=== PATIENT | female | born 1940 | race Caucasian/White ===

== ENCOUNTER 2016-12-16 15:10 | Inpatient (IN) ==
[~2016-12-16 15:10] MED LIST: LIDOCAINE 2% 5 ML VIAL ONE; PROPOFOL 200 MG/20 ML VIAL IV ONE
--- NOTE | 2016-12-16 15:27 | Family Practice History&Phys ---
Assessment and Plan (1) Rectal bleeding Status: Acute Assessment and plan: Admit to the monitor bed, Rectal bleeding/hemorrhoids/anemia, keep nothing by mouth, start IV fluids, will get stool occult blood testing, serial H&H. consult GI 2. Weakness, hypotension, continue IV fluids,will hold antihypertensives, Will get CT head noncontrast, consult neurology 3. Parkinson's disease, continue levodopa carbidopa, fall precautions, Current Visit: Yes (2) Weakness Status: Acute Current Visit: Yes (3) Parkinsons disease Status: Chronic Current Visit: Yes (4) Hemorrhoids Status: Chronic Current Visit: Yes (5) Hypotension Status: Acute Current Visit: Yes (6) Anemia Status: Chronic Current Visit: Yes History of Present Illness Chief complaint: rectal bleeding, weakness since 3 days History of present illness: Ms. Diop is a 76 year old female pt came for initial visit as walkin,accompanied by her friend, Ms.Jane Calvin , [facility]CP: [facility] , neurologist at [facility], last seen 1 yr ago.? Dr. Mao, GI having diarrhea , bleeding from rectum , since 3 days,, pt has external hemorrhoids, last BM , at 10AM , had blood , pt feeling weak,tired, h/o parkinson's, on stalevo, slurred speech since 3 day , but getting better, intermittently has difficulty swallowing on and off specially with pills, no head injury, has dizziness on and off since 3 days , specially on getting up , fall 3 days ago , once was unable to stand, no new vision issues mentions she lost 20 lbs since 03/2016, used to weigh 135 lbs in 10/2015, has h/ o anemia, appetite fair, last thing eaten today in AM, last c-scope /EGD 2014, C scope with ulcerative colitis with severe rectal involvement/proctitis, descending colon polyps, EGD showed hiatal hernia . 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 Home Medications Medication Instructions Recorded Confirmed Type ALPRAZolam [Xanax Xr] 0.5 tablet PO QID 02/12/15 12/16/16 History Aspirin [Ecotrin] 81 mg PO BID 02/12/15 12/16/16 History Carbid/Levo/Entac 37.5-150-200 150 mg PO TID 02/12/15 12/16/16 History [Stalevo 150] Fluticasone 50 Mcg Nasal [place] 2 spray BOTH NARES DAILY 02/12/15 12/16/16 History [Flonase Nasal [place]] Gabapentin 100 mg PO TID PRN 02/12/15 12/16/16 History HYDROcodone/ACETAMIN 10-325 [[place] 1 tablet PO Q4HR PRN 02/12/15 12/16/16 History 10-325] Lidocaine 5% Patch [Lidoderm 5% 1 patch TRANSDERM DAILY 02/12/15 12/16/16 History Patch] Ondansetron Odt Tab [Zofran Odt] 4 mg PO Q8H PRN 02/12/15 12/16/16 History Cholecalciferol (Vitamin D3) 4,000 unit PO DAILY 12/16/16 12/16/16 History [Vitamin D3] Esomeprazole Magnesium [Nexium] 40 mg PO DAILY 12/16/16 12/16/16 History Allergies Allergy/AdvReac Type Severity Reaction Status Date / Time celecoxib [From Celebrex] Allergy Verified 02/12/15 14:24 cephalexin [From Keflex] Allergy Verified 02/12/15 14:24 iodine Allergy Redness of Verified 02/11/15 14:48 Skin levofloxacin [From Levaquin] Allergy Swelling Verified 02/11/15 14:48 of Lip/Tongue/Throat mesalamine [From Asacol] Allergy Verified 02/13/15 11:23 metronidazole [From Flagyl] Allergy Verified 02/12/15 14:24 Penicillins Allergy Swelling Verified 02/11/15 14:48 of Lip/Tongue/Throat sulfamethoxazole Allergy Swelling Verified 02/11/15 14:48 [From Bactrim] of Lip/Tongue/Throat trimethoprim [From Bactrim] Allergy Swelling Verified 02/11/15 14:48 of Lip/Tongue/Throat - Constitutional Constitutional: Present: as per HPI - EENT Eyes: Present: as per HPI Nose, mouth and throat: Present: as per HPI - Cardiovascular Cardiovascular: Present: as per HPI - Respiratory Respiratory: Present: as per HPI - Gastrointestinal Gastrointestinal: Present: as per HPI - Genitourinary Genitourinary: Present: as per HPI - Musculoskeletal Musculoskeletal: Present: as per HPI - Neurological Neurological: Present: as per HPI - Psychiatric Psychiatric: Present: as per HPI - Endocrine Endocrine: Present: as per HPI - Hematologic/Lymphatic Hematologic/Lymphatic: Present: as per HPI Medical,Surgical,& Family Hx - Medical History Cardio: History of: Cardiac Dysrhythmia, Hypertension (Resolved), Valvular Heart Disease, Cardiovascular Problems No history of: Aneurysm, Cerebrovascular Disease, Congenital Heart Disease, CHF, CAD, [place], Pacemaker, PVD Psychological: History of: Anxiety Disorders No history of: ADHD, Behavior Problems, Bipolar Disorder, Depression, Previous Suicide Attempt, Psychiatric/Substance Abuse Tx, Schizophrenia, Violent Behavior, Psychiatric Problems Neurology: History of: Parkinson's Disease, TIA (12/2013), Vertigo (IN PAST) No history of: Brain Aneurysm, Cerebral Hemorrhage, Cerebrovascular Accident , Cerebral Palsy, Dementia, Migraine, Multiple Sclerosis, Peripheral Neuropathy , Seizures, Neurologocal Cancer HEENT: History of: Eye Problem (GLASSES, CATARACTS) No history of: Ear Problem, Dental Problems, Glaucoma, Oral Cancer, HEENT Problems Endocrine: No history of: Adrenal Disease, Diabetes Mellitus (IDDM), Diabetes Mellitus ( NIDDM), Dyslipidemia, Thyroid Disorder, Endocrine Cancer, Endocrine Problems Rheumatology: No history of;: Fibromyalgia, Gout, Myasthenia Gravis, Psoriasis, Rheumatoid Arthritis, Sjogrens, Systemic Lupus Erythematosus, Rheumatological Problems Respiratory: History of: Obstructive Sleep Apnea (Dr. Zapata told pt she needed sleep study but has not had) No history of: Asthma, Bronchitis, COPD, Intubation, Pulmonary Embolism, Pulmonary Hypertension, Pneumonia, Lung Cancer, Respiratory Problems Renal: No history of: Renal (Kidney) Cancer, Dialysis, Renal Failure, Renal Problems Genitourinary: History of: Bladder Problem, Recurring Urinary Tract Infections No history of: Kidney Stones, Genitourinary Cancer, Problems Gastrointestinal: History of: Diverticulitis/ Diverticulosis, GERD, Gastrointestinal Bleed, Hemorrhoids, Hematochezia, Ulcerative Colitis No history of: Bowel Obstruction, Clostridium Difficile, Crohn's Disease, Esophageal Varices, Hepatitis, Liver Problems, Pancreatitis, Polyps, Gastrointestinal Cancer Musculoskeletal: History of: Amputation (2 toes on left foot removed, osteomylitis.), Musculoskeletal Problems (chronic pain) No history of: Back/Neck Problems, Degenerative Disk Disease, Herniated Disk , Osteoporosis, Musculoskeletal Cancer Hematology: History of: Anemia No history of: Blood Transfusion Reaction, Bleeding Problems, Clotting Problems, Sickle Cell Disease, Hematologic Cancer, Blood Disorders Reproductive: No history of: Abnormal Pap Smear, Breast Cancer, Endometriosis, Ectopic , Ovarian Cysts, Complication, Sexually Transmitted Disorders , Reproductive Cancer, Reproductive Problems Other: History of: Anaphylaxis (PCN,SULFA Drugs, Levaquin) No history of: Anesthesia Reactions, Cancer, Eczema, HIV, Malignant Hyperthermia, MRSA, Vancomycin-Resistant Enterococci, Skin Problems, Miscellaneous Medical Problems - Surgical History Cardiac Surgeries: Patient Denies: Femoral-Popliteal Bypass Graft, Cardiac Catheterization, Cardiac Surgery, Carotid Endarterectomy, Internal Defibrillator, Vascular Access Devices Thoracic Surgeries: Patient denies;: Kidney (Renal Surgery), Lithotripsy, Nephrectomy, Organ Transplant, Lobectomy Neurologic Surgeries: Patient denies: Brain Aneurysm, Cerebral Hemorrhage, Neurologic Surgery HEENT Surgeries: Patient denies: Carotid Endarterectomy, Eye Surgery, Thyroid Surgery, Tonsilectomy & Adenoidectomy Abdominal Surgeries: Surgical HX of: Colonoscopy, EGD Patient denies: Abdominal Surgery, Appendectomy, Cholecystectomy, Gastric Bypass Surgery, Hernia Repair, Splenectomy Reproductive Surgeries: Patient denies;: Breast Surgery, Section, Cystoscopy, Dilation and Curettage, Genitourinary Surgery, Gynecologic Surgery, Hysterectomy, Tubal Ligation Orthopedic Surgeries: Surgical HX of;: Orthopedic Surgery (TOES AMPUTATED) Patient denies;: Implanted Devices, Spinal Surgery, Total Hip Replacement, Total Knee Replacement - Family History Family History: Reports;: Family Cancer (MOther, (breast)), Family Diabetes ( Brother, Daughter), Family Heart Disease (Father,Mother, Brothers), Family Hypertension (Father), Family Stroke (Father, Mother, Daughter) Denies;: Family Anesthesia Reaction, Family Psychiatric Problems - Social History Smoking Status: Former smoker Exam - Constitutional Vitals: In clinic Vitals: Temp 97.4, HR 74, RR 20, BP 92/60, Ht 61, Wt 118.2, BMI 22.33, Oxygen sat % 99 Exam: General Examination: Examined in the clinic GENERAL APPEARANCE: alert and oriented, pleasant, in no acute distress, unsteady gait, ambulating with a walker, early female patient . HEENT: pupils equal, round, reactive to light and accommodation, cannot close her eyes completely,, atraumatic, normocephalic . EYES: extraocular movement intact (EOMI), conjunctiva clear, normal . NECK/THYROID: neck supple, full range of motion, no cervical lymphadenopathy, no thyromegaly . HEART: regular rate and rhythm, no murmurs, rubs, gallops . LUNGS: clear to auscultation bilaterally, no wheezes, rales, rhonchi . ABDOMEN: soft, nontender, nondistended, no organomegaly , bowel sounds present . RECTAL: external hemorrhoids present, patient did not further allow to complete rectal exam , stool guaiac positive. EXTREMITIES: no edema . BACK: Kyphosis Of Thoracic spine region, mildly tender thoracolumbar spine. . NEUROLOGIC: alert and oriented x2, cannot close her eyes completely, slurred speech ,gait unsteady, strength 5 /5 bilateral upper extremities, 3/5 right lower extremity, 4/5 left lower extremity, . Results - Labs CBC & BMP: 12/16/16 16:41 12/16/16 16:41 Quality Measures - VTE Contraindication to Pharmacological VTE Prophylaxis: High Risk of Bleeding
[2016-12-16] MEDS ORDERED: SODIUM CHLORIDE 0.9% 1,000 ML IV SCH (16:00)
--- NOTE | 2016-12-16 16:25 | EKG Report ---
Stationary ECG Study [facility] Test Date: 12/16/2016 4:23:35 PM Pat Name: MARTHA BARNEY Department: Room: 436 Gender: F [employer]: : 1940 Requested by: Anatoly Burrell Order Number: [id number] Reading MD: WOOD ALEXANDER Intervals [place] Rate: 62 P: 48 UT: 119 QRS: 34 QRSD: 90 T: 79 QT: 417 QTc: 423 Interpretive Statements SINUS RHYTHM WITH SHORT UT INTERVAL SEPTAL MYOCARDIAL INFARCTION, PROBABLY OLD Electronically Signed On 12-16-16 20:33:40 CDT by WOOD ALEXANDER [email or web address]
[2016-12-16 17:10] LABS: Basophils % 0.3 % (0.0-0.8); Eosinophils # 0.1 10*3/uL (0.0-0.87); Hematocrit 25.1 VOL% (35.7-47.0); Hemoglobin 8.7 GM/DL (12.0-16.0); Immature Granulocytes % 0.6 %; Immature Granulocytes Absolute 0.04 #; Lymphocytes # 0.6 10*3/uL (1.4-4.0); Lymphocytes % 9.6 % (21.3-54.2); Mean Corpuscular HGB Conc 34.7 GM/DL (32-36); Mean Corpuscular Hemoglobin 31 PG (27-34); Mean Platelet Volume 10.6 FL (9.6-12.0); Monocytes # 0.5 10*3/uL (0.11-0.8); Monocytes % 7.1 % (1.7-12.7); Neutrophils # 5.1 10*3/uL (1.4-7.4); Neutrophils % 80.4 % (38.7-73.9); Platelet Count 211 T/CUMM (130-400); Red Blood Count 2.82 MC/CUMM (3.8-5.5); Red Cell Distribution Width 12.6 % (9.3-17.3); White Blood Count 6.4 T/CUMM (4-12)
[2016-12-16 17:42] LABS: Alanine Aminotransferase < 6 U/L (13-56); Albumin 2.5 G/DL (3.4-5.0); Alkaline Phosphatase 95 U/L (45-117); Aspartate Amino Transferase 14 U/L (0-37); Blood Urea Nitrogen 36 MG/DL (7-18); Calcium 8.7 MG/DL (8.5-10.1); Glucose 105 MG/DL (74-106); Osmolality,Calculated 275.2 MOS/KG (273-304); Potassium 3.2 MMOL/L (3.5-5.1); Sodium 134 MMOL/L (136-145); Total Protein 5.9 G/DL (6.4-8.3)
--- NOTE | 2016-12-16 18:25 | CT Report ---
CT head/brain wo con INDICATION: Weakness, slurred speech The total DLP is 942 mGy*cm. COMPARISON: Noncontrast CT head dated 11/13/2015 Technique: Serial axial tomographic images of the brain were obtained without the use of intravenous contrast. Dose reduction: This CT exam was performed using one or more of the following dose reduction techniques: Automated exposure control, automated adjustment of the mA and/or KV according to patient size, or use of iterative reconstruction technique. Findings: Moderate generalized atrophy is noted with mild prominence of the sulci and cortical volume loss. Periventricular white matter hypodensity changes are noted bilaterally which do not demonstrate mass effect and are nonspecific but favored to represent sequela of chronic microvascular ischemia. There is no evidence of vascular territory infarct or acute intracranial hemorrhage. The bryan-white matter differentiation is generally maintained. There is no hydrocephalus. The basilar cisterns are patent. The visualized paranasal sinuses, mastoid air cells and middle ear cavities are predominantly clear. The included orbits and their contents appear within normal limits. The visualized osseous structures and overlying soft tissues of the skull and face demonstrate no acute abnormality. IMPRESSION: No acute intracranial hemorrhage or infarction. Similar moderate generalized atrophy and findings of chronic microvascular ischemia. PROCEDURE INTERPRETED AT [facility] DEPARTMENT OF RADIOLOGY Final Report Signed by: Figueroa Rudolph
--- NOTE | 2016-12-16 18:26 | XRay Report ---
Exam: XR chest 2V Indication: Shortness of breath Comparison study: Prior chest radiograph dated 02-11-15 Findings: The heart, mediastinum and bony structures are stable from prior. Diffuse mild interstitial prominence with hyperexpansion of the lungs compatible COPD changes appear similar to prior. There is no focal consolidation, pneumothorax or pleural effusion identified. Impression: No acute cardiopulmonary process. No significant change with chronic interstitial changes noted. PROCEDURE INTERPRETED AT [facility] DEPARTMENT OF RADIOLOGY Final Report Signed by: Figueroa Rudolph
[2016-12-16] MEDS ORDERED: ONDANSETRON ODT 4 MG TABLET PO PRN (23:03)
[2016-12-16] MEDS: ACETAMINOPHEN 325 MG TABLET PO PRN (23:31)
[2016-12-16] MEDS: ALPRAZolam 0.25 MG TABLET PO PRN (23:31)
[2016-12-16] MEDS: SODIUM CHLOR 0.9% KCL 20 MEQ 20 MEQ/1,000 ML BAG IV SCH (23:32)
[2016-12-16] MEDS: DOCUSATE SODIUM 100 MG CAPSULE PO SCH (23:32)
[2016-12-16 23:46] LABS: Hematocrit 25.6 VOL% (35.7-47.0); Hemoglobin 8.9 GM/DL (12.0-16.0)
[2016-12-17 05:57] LABS: Basophils % 0.2 % (0.0-0.8); Eosinophils # 0.1 10*3/uL (0.0-0.87); Eosinophils % 1.8 % (0.00-10.9); Hematocrit 21.1 VOL% (35.7-47.0); Immature Granulocytes % 0.4 %; Immature Granulocytes Absolute 0.02 #; Lymphocytes # 0.6 10*3/uL (1.4-4.0); Lymphocytes % 10.7 % (21.3-54.2); Mean Corpuscular HGB Conc 35.1 GM/DL (32-36); Mean Corpuscular Hemoglobin 31 PG (27-34); Mean Corpuscular Volume 87.6 FL (87-102); Mean Platelet Volume 10.7 FL (9.6-12.0); Monocytes # 0.4 10*3/uL (0.11-0.8); Monocytes % 6.6 % (1.7-12.7); Neutrophils # 4.4 10*3/uL (1.4-7.4); Neutrophils % 80.3 % (38.7-73.9); Platelet Count 201 T/CUMM (130-400); Red Blood Count 2.41 MC/CUMM (3.8-5.5); Red Cell Distribution Width 12.8 % (9.3-17.3); White Blood Count 5.4 T/CUMM (4-12)
[2016-12-17 05:59] LABS: Hemoglobin 7.4 GM/DL (12.0-16.0)
[2016-12-17 07:34] LABS: Calcium 7.6 MG/DL (8.5-10.1); Osmolality,Calculated 278.8 MOS/KG (273-304); Potassium 3.3 MMOL/L (3.5-5.1)
[2016-12-17] MEDS ORDERED: [UNRECOGNIZED DRUG - MIXTURE] PO SCH (09:00)
[2016-12-17] MEDS ORDERED: NON-FORMULARY MEDICATION (Esomeprazole Magnesium 40 MG) PO SCH (09:00)
[2016-12-17] MEDS ORDERED: ALPRAZolam 0.5 MG TABLET PO SCH (09:00)
[2016-12-17] MEDS ORDERED: ASPIRIN EC 81 MG TABLET PO SCH (09:00)
--- NOTE | 2016-12-17 09:17 | Family Practice Progress Note ---
Family Practice - PN: Subj Interval history: PCP: , [facility], GI, Neurologist, pt admitted for rectal bleeding, weakness, slurry speech improved .Had hypotension at admission, pt has h/o Anemia, ext hemorrhoids, Ulcerative proctitis, parkinson's disease, General anxiety disorder Pt seen and examined at 4E, lying in bed, speech improved today, no BM since admission, no nausea /vomiting/chest pain or SOB, no abdominal pain , no headaches or dizziness, Exam (Progress Note) - Constitutional Vitals: Period Temp Pulse Resp BP Sys/Adrian Pulse Ox Last 24 Hr 96.5 F-99.2 F 65-82 18-22 93-130/55-61 95-98 Exam: General Examination: GENERAL APPEARANCE: alert and oriented, pleasant, in no acute distress, early female patient lying in bed. HEENT: pupils equal, round, reactive to light and accommodation, cannot close her eyes completely,, atraumatic, normocephalic . EYES: extraocular movement intact (EOMI), conjunctiva clear, normal . NECK/THYROID: neck supple, full range of motion, no cervical lymphadenopathy, no thyromegaly . HEART: regular rate and rhythm, no murmurs, rubs, gallops . LUNGS: clear to auscultation bilaterally, no wheezes, rales, rhonchi . ABDOMEN: soft, nontender, nondistended, no organomegaly , bowel sounds present . EXTREMITIES: no edema , tender at rt hip,. NEUROLOGIC: alert and oriented x2, cannot close her eyes completely, slurred speech improved compared with yesterday,, strength 5 /5 bilateral upper extremities, 3/5 right lower extremity, 4/5 left lower extremity, . Results - Labs CBC & BMP: 12/17/16 09:47 12/17/16 05:00 Lab Results: I have reviewed the past 24 hour labs - Diagnostic Findings Procedure: Chest x-ray: report reviewed by me, image reviewed by me, CT: image reviewed by me, report reviewed by me Assessment and Plan (1) Rectal bleeding Status: Acute Assessment and plan: Rectal bleeding/hemorrhoids/anemia, on IV fluids, serial H&H.follow GI recommendation, 2. Weakness, hypotension, continue IV fluids with K,will hold antihypertensives, 3. Parkinson's disease, continue levodopa carbidopa, fall precautions, continue neurology recommendations, 4. will consult Speech therapist , for swallow evaluation 5. will consult PT/OT , 6.Xray of hip, pelvis today. 7. replace K 8. General anxiety , stable, decreased xanax dosage , prn Current Visit: Yes (2) Weakness Status: Acute Current Visit: Yes (3) Parkinsons disease Status: Chronic Current Visit: Yes (4) Hemorrhoids Status: Chronic Current Visit: Yes (5) Hypotension Status: Acute Current Visit: Yes (6) Anemia Status: Chronic Current Visit: Yes (7) Generalized anxiety disorder Status: Chronic Current Visit: Yes Quality Measures - VTE Contraindication to Pharmacological VTE Prophylaxis: High Risk of Bleeding
--- NOTE | 2016-12-17 09:32 | Neurology Consult Note ---
History of Present Illness History of present illness: 76 years old right-handed white lady with past medical history significant for Parkinson's disease sees Dr. Jett (neurology) admitted the hospital with diarrhea, bleeding from rectum for the past 3 days. Patient has a history of external hemorrhoids. Her H&H is down to 7 and 27 she has a history of Parkinson's and states on the Stalevo. Patient reported that she has been having difficulty in tolerating this medicine. She has not seen her neurologist and lost over 8 months. She has significant weight loss and loss of appetite as well. She has been falling frequently and fell yesterday as well and complaining of significant lower back pain and left hip pain with the bruising. She also has history of ulcerative colitis with severe ductal involvement and proctitis. CT of the head reveals no acute abnormalities. Home Medications Medication Instructions Recorded Confirmed Type ALPRAZolam [Xanax Xr] 0.5 tablet PO QID 02/12/15 12/16/16 History Aspirin [Ecotrin] 81 mg PO BID 02/12/15 12/16/16 History Carbid/Levo/Entac 37.5-150-200 150 mg PO TID 02/12/15 12/16/16 History [Stalevo 150] Fluticasone 50 Mcg Nasal [place] 2 spray BOTH NARES DAILY 02/12/15 12/16/16 History [Flonase Nasal [place]] Gabapentin 100 mg PO TID PRN 02/12/15 12/16/16 History HYDROcodone/ACETAMIN 10-325 [[place] 1 tablet PO Q4HR PRN 02/12/15 12/16/16 History 10-325] Lidocaine 5% Patch [Lidoderm 5% 1 patch TRANSDERM DAILY 02/12/15 12/16/16 History Patch] Ondansetron Odt Tab [Zofran Odt] 4 mg PO Q8H PRN 02/12/15 12/16/16 History Cholecalciferol (Vitamin D3) 4,000 unit PO DAILY 12/16/16 12/16/16 History [Vitamin D3] Esomeprazole Magnesium [Nexium] 40 mg PO DAILY 12/16/16 12/16/16 History Allergies Allergy/AdvReac Type Severity Reaction Status Date / Time celecoxib [From Celebrex] Allergy Verified 02/12/15 14:24 cephalexin [From Keflex] Allergy Verified 02/12/15 14:24 iodine Allergy Redness of Verified 02/11/15 14:48 Skin levofloxacin [From Levaquin] Allergy Swelling Verified 02/11/15 14:48 of Lip/Tongue/Throat mesalamine [From Asacol] Allergy Verified 02/13/15 11:23 metronidazole [From Flagyl] Allergy Verified 02/12/15 14:24 Penicillins Allergy Swelling Verified 02/11/15 14:48 of Lip/Tongue/Throat sulfamethoxazole Allergy Swelling Verified 02/11/15 14:48 [From Bactrim] of Lip/Tongue/Throat trimethoprim [From Bactrim] Allergy Swelling Verified 02/11/15 14:48 of Lip/Tongue/Throat 12 point system: reviewed and no additional remarkable complaints except as stated Medical,Surgical,& Family Hx - Medical History Cardio: History of: Cardiac Dysrhythmia, Hypertension (Resolved), Valvular Heart Disease, Cardiovascular Problems No history of: Aneurysm, Cerebrovascular Disease, Congenital Heart Disease, CHF, CAD, [place], Pacemaker, PVD Psychological: History of: Anxiety Disorders No history of: ADHD, Behavior Problems, Bipolar Disorder, Depression, Previous Suicide Attempt, Psychiatric/Substance Abuse Tx, Schizophrenia, Violent Behavior, Psychiatric Problems Neurology: History of: Parkinson's Disease, TIA (12/2013), Vertigo (IN PAST) No history of: Brain Aneurysm, Cerebral Hemorrhage, Cerebrovascular Accident , Cerebral Palsy, Dementia, Migraine, Multiple Sclerosis, Peripheral Neuropathy , Seizures, Neurologocal Cancer HEENT: History of: Eye Problem (GLASSES, CATARACTS) No history of: Ear Problem, Dental Problems, Glaucoma, Oral Cancer, HEENT Problems Endocrine: No history of: Adrenal Disease, Diabetes Mellitus (IDDM), Diabetes Mellitus ( NIDDM), Dyslipidemia, Thyroid Disorder, Endocrine Cancer, Endocrine Problems Rheumatology: No history of;: Fibromyalgia, Gout, Myasthenia Gravis, Psoriasis, Rheumatoid Arthritis, Sjogrens, Systemic Lupus Erythematosus, Rheumatological Problems Respiratory: History of: Obstructive Sleep Apnea (Dr. Zapata told pt she needed sleep study but has not had) No history of: Asthma, Bronchitis, COPD, Intubation, Pulmonary Embolism, Pulmonary Hypertension, Pneumonia, Lung Cancer, Respiratory Problems Renal: No history of: Renal (Kidney) Cancer, Dialysis, Renal Failure, Renal Problems Genitourinary: History of: Bladder Problem, Recurring Urinary Tract Infections No history of: Kidney Stones, Genitourinary Cancer, Problems Gastrointestinal: History of: Diverticulitis/ Diverticulosis, GERD, Gastrointestinal Bleed, Hemorrhoids, Hematochezia, Ulcerative Colitis No history of: Bowel Obstruction, Clostridium Difficile, Crohn's Disease, Esophageal Varices, Hepatitis, Liver Problems, Pancreatitis, Polyps, Gastrointestinal Cancer Musculoskeletal: History of: Amputation (2 toes on left foot removed, osteomylitis.), Musculoskeletal Problems (chronic pain) No history of: Back/Neck Problems, Degenerative Disk Disease, Herniated Disk , Osteoporosis, Musculoskeletal Cancer Hematology: History of: Anemia No history of: Blood Transfusion Reaction, Bleeding Problems, Clotting Problems, Sickle Cell Disease, Hematologic Cancer, Blood Disorders Reproductive: No history of: Abnormal Pap Smear, Breast Cancer, Endometriosis, Ectopic , Ovarian Cysts, Complication, Sexually Transmitted Disorders , Reproductive Cancer, Reproductive Problems Other: History of: Anaphylaxis (PCN,SULFA Drugs, Levaquin) No history of: Anesthesia Reactions, Cancer, Eczema, HIV, Malignant Hyperthermia, MRSA, Vancomycin-Resistant Enterococci, Skin Problems, Miscellaneous Medical Problems - Surgical History Cardiac Surgeries: Patient Denies: Femoral-Popliteal Bypass Graft, Cardiac Catheterization, Cardiac Surgery, Carotid Endarterectomy, Internal Defibrillator, Vascular Access Devices Thoracic Surgeries: Patient denies;: Kidney (Renal Surgery), Lithotripsy, Nephrectomy, Organ Transplant, Lobectomy Neurologic Surgeries: Patient denies: Brain Aneurysm, Cerebral Hemorrhage, Neurologic Surgery HEENT Surgeries: Patient denies: Carotid Endarterectomy, Eye Surgery, Thyroid Surgery, Tonsilectomy & Adenoidectomy Abdominal Surgeries: Surgical HX of: Colonoscopy, EGD Patient denies: Abdominal Surgery, Appendectomy, Cholecystectomy, Gastric Bypass Surgery, Hernia Repair, Splenectomy Reproductive Surgeries: Patient denies;: Breast Surgery, Section, Cystoscopy, Dilation and Curettage, Genitourinary Surgery, Gynecologic Surgery, Hysterectomy, Tubal Ligation Orthopedic Surgeries: Surgical HX of;: Orthopedic Surgery (TOES AMPUTATED) Patient denies;: Implanted Devices, Spinal Surgery, Total Hip Replacement, Total Knee Replacement - Family History Family History: Reports;: Family Cancer (MOther, (breast)), Family Diabetes ( Brother, Daughter), Family Heart Disease (Father,Mother, Brothers), Family Hypertension (Father), Family Stroke (Father, Mother, Daughter) Denies;: Family Anesthesia Reaction, Family Psychiatric Problems - Social History Smoking Status: Former smoker Frequency of Alcohol Use: None Type of Drug Use: None Exam - Constitutional Vitals: Period Temp Pulse Resp BP Sys/Adrian Pulse Ox Last 24 Hr 96.5 F-99.2 F 65-82 18-22 93-130/55-61 95-98 Exam: GENERAL: Patient is in no acute distress. NECK: Neck is supple. There is no JVD. No carotid bruits present. No thyroid masses. CVS: First and second heart sounds are normal. There is no S3 present. Regular rate and rhythm. RESPIRATORY: Lungs are clear to auscultation without any rales or rhonchi. ABDOMEN: Soft and non-tender. Bowel sounds are present. There is no hepatosplenomegaly. EXT: There is no palpable edema. Peripheral pulses are present. Skin: No rashes Central Nervous system: General: Alert, awake and Oriented x 3 Speech: Fluent Comprehension: Intact and normal Facial expressions: Normal Cranial Nerves: CN1/Olfactory: Normal CN II/ Optic: Normal, Visual Granado unreliable CN III, and : ART & EOMI CN V: Normal & intact CN VII: face is symmetric CNVIII: Normal CN XI/X/XI/XII: Intact and Normal Motor: No cogwheel rigidity seen. Marked tenderness in the lower back and in the left hip Strength in the right 3/5 Strength in the left 3/5 Sensory: Grossly intact for all the modalities of PP, LT and temp sense Reflexes: 1+ and symmetrical Cerebellar function: Normal finger to nose testing. Toes: Equivocal Gait: Not tested at this time Results - Labs CBC & BMP: 12/17/16 05:00 12/17/16 05:00 Assessment and Plan (1) Frequent falls Status: Acute Assessment and plan: MRI LS spine and left hip Current Visit: Yes (2) Parkinsons disease Status: Chronic Assessment and plan: Changes Stalevo to 100 mg 3 times Consult TMR Thank you for the consult Current Visit: Yes
[2016-12-17] MEDS ORDERED: [UNRECOGNIZED DRUG - MIXTURE] PO SCH (09:36)
[2016-12-17] MEDS: ACETAMINOPHEN 325 MG TABLET PO PRN (09:38)
[2016-12-17] MEDS: LIDOCAINE 5% PATCH TRANSDERM SCH (09:40)
[2016-12-17] MEDS: CHOLECALCIFEROL 1,000 UNIT TABLET PO SCH (09:41)
[2016-12-17] MEDS: DOCUSATE SODIUM 100 MG CAPSULE PO SCH ×2 (09:41→21:24)
[2016-12-17] MEDS: FLUTICASONE 50 MCG NASAL SPRAY 16 GM BOTTLE BOTH NARES SCH (09:41)
[2016-12-17] MEDS: GABAPENTIN 100 MG CAPSULE PO SCH ×2 (09:41→16:35)
[2016-12-17 10:01] LABS: Hematocrit 25.3 VOL% (35.7-47.0); Hemoglobin 8.5 GM/DL (12.0-16.0)
--- NOTE | 2016-12-17 10:27 | Gastrointestinal Consult Note ---
<Zena Ann - Last Filed: 12/17/16 10:24> Assessment and Plan (1) Hematochezia Status: Acute Assessment and plan: 12/17-Three month history of rectal bleeding off and on with moderate episode of bright red blood without stool on yesterday. Prior history of UC, hemorrhoids and rectal involvement/proctitis with last colonoscopy in 2014. Last EGD in 2016 with stricture with dilation and hiatal hernia. H&H 8.5/25.3 with no further reports of overt bleeding. Stools for occult blood pending. Clear liquid diet. Plan an addendum to follow by Dr. Mao. Current Visit: No (2) Dysphagia Status: Acute Assessment and plan: 12/17-history of dysphagia with esophageal stricture and dilation most recently in 2015, with complaints of difficulty swallowing pills. Reported 20 pound weight loss over past year with decreased appetite. Plan an addendum to followed by Dr. Mao. Current Visit: Yes History of Present Illness Chief complaint: Rectal bleeding History of present illness: Ms. Diop is a 76 year old female who was admitted to the hospital on yesterday after episode of rectal bleeding. Patient has a prior history of Parkinson's disease. Patient states that she was in her usual state of health until yesterday when she had a large, loose bowel movement. Shortly following this she had the urge to defecate again however this time she had a moderate amount of bright red blood without stool that she passed rectally. Patient states that she has had some fairly loose stools the past 2 or 3 days prior to onset of the bleeding. She states prior to this, for the last 3 months, she has had a small amount of bright red bleeding with bowel movements however states that she is aware of having hemorrhoids and felt this was mostly related to this. Patient denies any associated abdominal pain, nausea or vomiting. She states that she has not passed any further blood since that time however due to weakness for the last 2 or 3 days, she presented to see her PCP and after findings of anemia, she was admitted to the hospital for further workup. Patient states that she has lost approximately 20 pounds over the last year however states that she has a decreased appetite. She lives alone and states that she does not always fix food for herself as she should. She also has reported history of dysphagia with prior history of dilation in the past with most recent EGD in 2016 with esophageal stricture with dilation as well as hiatal hernia. Her last colonoscopy was noted in 2014 with findings of ulcerative colitis confirmed with biopsy with also findings of proctitis and polyp removal (tubular adenoma). Patient denies any NSAID use. She does take Nexium daily as well as a baby aspirin. Patient states she also had a fall at home prior to coming in at this time is having x-rays to assess for any injury due to this. Home Medications Medication Instructions Recorded Confirmed Type ALPRAZolam [Xanax Xr] 0.5 tablet PO QID 02/12/15 12/16/16 History Aspirin [Ecotrin] 81 mg PO BID 02/12/15 12/16/16 History Carbid/Levo/Entac 37.5-150-200 150 mg PO TID 02/12/15 12/16/16 History [Stalevo 150] Fluticasone 50 Mcg Nasal [place] 2 spray BOTH NARES DAILY 02/12/15 12/16/16 History [Flonase Nasal [place]] Gabapentin 100 mg PO TID PRN 02/12/15 12/16/16 History HYDROcodone/ACETAMIN 10-325 [[place] 1 tablet PO Q4HR PRN 02/12/15 12/16/16 History 10-325] Lidocaine 5% Patch [Lidoderm 5% 1 patch TRANSDERM DAILY 02/12/15 12/16/16 History Patch] Ondansetron Odt Tab [Zofran Odt] 4 mg PO Q8H PRN 02/12/15 12/16/16 History Cholecalciferol (Vitamin D3) 4,000 unit PO DAILY 12/16/16 12/16/16 History [Vitamin D3] Esomeprazole Magnesium [Nexium] 40 mg PO DAILY 12/16/16 12/16/16 History Allergies Allergy/AdvReac Type Severity Reaction Status Date / Time celecoxib [From Celebrex] Allergy Verified 02/12/15 14:24 cephalexin [From Keflex] Allergy Verified 02/12/15 14:24 iodine Allergy Redness of Verified 02/11/15 14:48 Skin levofloxacin [From Levaquin] Allergy Swelling Verified 02/11/15 14:48 of Lip/Tongue/Throat mesalamine [From Asacol] Allergy Verified 02/13/15 11:23 metronidazole [From Flagyl] Allergy Verified 02/12/15 14:24 Penicillins Allergy Swelling Verified 02/11/15 14:48 of Lip/Tongue/Throat sulfamethoxazole Allergy Swelling Verified 02/11/15 14:48 [From Bactrim] of Lip/Tongue/Throat trimethoprim [From Bactrim] Allergy Swelling Verified 02/11/15 14:48 of Lip/Tongue/Throat Medical,Surgical,& Family Hx - Medical History Cardio: History of: Cardiac Dysrhythmia, Hypertension (Resolved), Valvular Heart Disease, Cardiovascular Problems No history of: Aneurysm, Cerebrovascular Disease, Congenital Heart Disease, CHF, CAD, [place], Pacemaker, PVD Psychological: History of: Anxiety Disorders No history of: ADHD, Behavior Problems, Bipolar Disorder, Depression, Previous Suicide Attempt, Psychiatric/Substance Abuse Tx, Schizophrenia, Violent Behavior, Psychiatric Problems Neurology: History of: Parkinson's Disease, TIA (12/2013), Vertigo (IN PAST) No history of: Brain Aneurysm, Cerebral Hemorrhage, Cerebrovascular Accident , Cerebral Palsy, Dementia, Migraine, Multiple Sclerosis, Peripheral Neuropathy , Seizures, Neurologocal Cancer HEENT: History of: Eye Problem (GLASSES, CATARACTS) No history of: Ear Problem, Dental Problems, Glaucoma, Oral Cancer, HEENT Problems Endocrine: No history of: Adrenal Disease, Diabetes Mellitus (IDDM), Diabetes Mellitus ( NIDDM), Dyslipidemia, Thyroid Disorder, Endocrine Cancer, Endocrine Problems Rheumatology: No history of;: Fibromyalgia, Gout, Myasthenia Gravis, Psoriasis, Rheumatoid Arthritis, Sjogrens, Systemic Lupus Erythematosus, Rheumatological Problems Respiratory: History of: Obstructive Sleep Apnea (Dr. Zapata told pt she needed sleep study but has not had) No history of: Asthma, Bronchitis, COPD, Intubation, Pulmonary Embolism, Pulmonary Hypertension, Pneumonia, Lung Cancer, Respiratory Problems Renal: No history of: Renal (Kidney) Cancer, Dialysis, Renal Failure, Renal Problems Genitourinary: History of: Bladder Problem, Recurring Urinary Tract Infections No history of: Kidney Stones, Genitourinary Cancer, Problems Gastrointestinal: History of: Diverticulitis/ Diverticulosis, GERD, Gastrointestinal Bleed, Hemorrhoids, Hematochezia, Ulcerative Colitis No history of: Bowel Obstruction, Clostridium Difficile, Crohn's Disease, Esophageal Varices, Hepatitis, Liver Problems, Pancreatitis, Polyps, Gastrointestinal Cancer Musculoskeletal: History of: Amputation (2 toes on left foot removed, osteomylitis.), Musculoskeletal Problems (chronic pain) No history of: Back/Neck Problems, Degenerative Disk Disease, Herniated Disk , Osteoporosis, Musculoskeletal Cancer Hematology: History of: Anemia No history of: Blood Transfusion Reaction, Bleeding Problems, Clotting Problems, Sickle Cell Disease, Hematologic Cancer, Blood Disorders Reproductive: No history of: Abnormal Pap Smear, Breast Cancer, Endometriosis, Ectopic , Ovarian Cysts, Complication, Sexually Transmitted Disorders , Reproductive Cancer, Reproductive Problems Other: History of: Anaphylaxis (PCN,SULFA Drugs, Levaquin) No history of: Anesthesia Reactions, Cancer, Eczema, HIV, Malignant Hyperthermia, MRSA, Vancomycin-Resistant Enterococci, Skin Problems, Miscellaneous Medical Problems - Surgical History Cardiac Surgeries: Patient Denies: Femoral-Popliteal Bypass Graft, Cardiac Catheterization, Cardiac Surgery, Carotid Endarterectomy, Internal Defibrillator, Vascular Access Devices Thoracic Surgeries: Patient denies;: Kidney (Renal Surgery), Lithotripsy, Nephrectomy, Organ Transplant, Lobectomy Neurologic Surgeries: Patient denies: Brain Aneurysm, Cerebral Hemorrhage, Neurologic Surgery HEENT Surgeries: Patient denies: Carotid Endarterectomy, Eye Surgery, Thyroid Surgery, Tonsilectomy & Adenoidectomy Abdominal Surgeries: Surgical HX of: Colonoscopy, EGD Patient denies: Abdominal Surgery, Appendectomy, Cholecystectomy, Gastric Bypass Surgery, Hernia Repair, Splenectomy Reproductive Surgeries: Patient denies;: Breast Surgery, Section, Cystoscopy, Dilation and Curettage, Genitourinary Surgery, Gynecologic Surgery, Hysterectomy, Tubal Ligation Orthopedic Surgeries: Surgical HX of;: Orthopedic Surgery (TOES AMPUTATED) Patient denies;: Implanted Devices, Spinal Surgery, Total Hip Replacement, Total Knee Replacement - Family History Family History: Reports;: Family Cancer (MOther, (breast)), Family Diabetes ( Brother, Daughter), Family Heart Disease (Father,Mother, Brothers), Family Hypertension (Father), Family Stroke (Father, Mother, Daughter) Denies;: Family Anesthesia Reaction, Family Psychiatric Problems - Social History Smoking Status: Former smoker Frequency of Alcohol Use: None Type of Drug Use: None 12 point system: reviewed and no additional remarkable complaints except as stated - Constitutional Constitutional: Present: as per HPI - EENT Eyes: Present: as per HPI Ears: Present: as per HPI Nose, mouth and throat: Present: as per HPI - Cardiovascular Cardiovascular: Present: as per HPI - Respiratory Respiratory: Present: as per HPI - Gastrointestinal Gastrointestinal: Present: as per HPI, abdominal pain, hematochezia - Genitourinary Genitourinary: Present: as per HPI - Musculoskeletal Musculoskeletal: Present: as per HPI - Neurological Neurological: Present: as per HPI - Psychiatric Psychiatric: Present: as per HPI - Endocrine Endocrine: Present: as per HPI - Hematologic/Lymphatic Hematologic/Lymphatic: Present: as per HPI Exam - Constitutional Vitals: Period Temp Pulse Resp BP Sys/Adrian Pulse Ox Last 24 Hr 96.5 F-99.2 F 60-82 18-22 93-130/55-61 95-98 General appearance: normal weight, no acute distress - Head Head exam: Present: normal inspection, normocephalic - Eye Eye exam: Present: other (lids and conjunctiva unremarkable). Absent: scleral icterus - ENT ENT exam: Present: normal exam, normal oropharynx - Neck Neck exam: Present: normal inspection - Respiratory Respiratory exam: Present: clear to auscultation bilaterally. Absent: rales, rhonchi, wheezes - Cardiovascular Cardiovascular exam: Present: regular rate and rhythm. Absent: diastolic murmur , JVD, systolic murmur - GI/Abdominal GI/Abdominal exam: Present: normal bowel sounds, soft. Absent: ascites, distended, mass, organomegaly, tenderness - Extremities Exam Extremities exam: Present: normal inspection, full ROM - Back Exam Back exam: Present: normal inspection - Neurological Exam Neurological exam: Present: alert, oriented X3 - Psychiatric Psychiatric exam: Present: normal affect, normal mood - Skin Skin exam: Present: normal color, warm, dry Results - Labs CBC & BMP: 12/17/16 09:47 12/17/16 05:00 Lab Results: I have reviewed the past 24 hour labs Quality Measures - VTE Contraindication to Pharmacological VTE Prophylaxis: High Risk of Bleeding <Anatoly Burrell - Last Filed: 12/17/16 12:41> Assessment and Plan (1) Rectal bleeding Status: Acute Current Visit: Yes (2) Weakness Status: Acute Current Visit: Yes (3) Parkinsons disease Status: Chronic Current Visit: Yes (4) Hemorrhoids Status: Chronic Current Visit: Yes (5) Hypotension Status: Acute Current Visit: Yes (6) Anemia Status: Chronic Current Visit: Yes History of Present Illness History of present illness: Ms. Diop is a 76 year old female Exam - Constitutional Vitals: Period Temp Pulse Resp BP Sys/Adrian Pulse Ox Last 24 Hr 96.5 F-99.2 F 60-82 18-22 93-130/53-61 95-99 Results - Labs CBC & BMP: 12/17/16 09:47 12/17/16 05:00
[2016-12-17] MEDS: POTASSIUM CHLORIDE RIDER 10 MEQ in PREMIX 1 EACH IV SCH ×2 (11:30→13:47)
[2016-12-17] MEDS: PANTOPRAZOLE 40 MG VIAL IV SCH (11:30)
--- NOTE | 2016-12-17 13:42 | XRay Report ---
Three-view pelvis December 17, 2016 Indication fall with pain Comparison images not available Findings: No fracture or dislocation. Bony pelvis is intact. Bowel gas pattern is normal. Regional soft tissues are unremarkable. Impression: Normal pelvis PROCEDURE INTERPRETED AT [facility] DEPARTMENT OF RADIOLOGY Final Report Signed by: Jimmy Lucas
[2016-12-17 14:55] LABS: % Iron Saturation 11.6 % (18-50); Ferritin 192.6 ng/ml (8-252)
[2016-12-17] MEDS: SODIUM CHLOR 0.9% KCL 20 MEQ 20 MEQ/1,000 ML BAG IV SCH (16:35)
[2016-12-17] MEDS: STALEVO PO SCH ×2 (16:36→21:24)
--- NOTE | 2016-12-17 16:38 | Magnetic Resonance Report ---
Exam: MRI lumbar spine without contrast Indication: 76-year-old female, frequent falls with severe back pain Comparison: No relevant comparisons Technique: Multisequence, multiplanar imaging of the thoracic spine was performed without contrast Findings: Grade 1 anterolisthesis of L5. Superior endplate deformity of L1, chronic. Preservation of the remaining vertebral body heights. Well-defined focus of T2 within the L2 vertebral body with corresponding intermediate T1 signal, felt to represent atypical hemangioma. Preservation of the remaining marrow signal Cord signal is normal terminating at T12-L1. No intra or extradural abnormalities. Disc desiccation throughout the remainder degree of disc space narrowing T12-L1: Unremarkable L1-L2: Unremarkable L2-L3: Slight annular disc bulge and hypertrophic endplate changes. Mild facet arthrosis. No significant central or foraminal narrowing L3-L4: Slight annular disc bulge and hypertrophic endplate changes. No significant central or foraminal stenosis L4-L5: Mild facet arthrosis L5-S1: Anterolisthesis with moderate facet arthrosis. No spinal stenosis. Moderate right foraminal narrowing No soft tissue abnormalities. Impression: 1. T2 hyperintense lesion within the L2 body with corresponding intermediate signal. Findings felt to represent atypical hemangioma. Six-month follow-up is suggested. 2. Grade 1 anterolisthesis of L5 resulting in moderate right foraminal narrowing, correlate clinically for radicular symptoms PROCEDURE INTERPRETED AT [facility] DEPARTMENT OF RADIOLOGY Final Report Signed by: Jimmy Lucas
--- NOTE | 2016-12-17 16:52 | Magnetic Resonance Report ---
MRI left hip December 17, 2016 at 1528 hours Indication: Frequent falls with severe left hip pain Comparison images not available Technique: Multisequence, multiplanar imaging of the left hip was performed without contrast per routine protocol Findings: Generalized muscle atrophy. Extensor, flexor and abductor tendons are unremarkable in appearance. The iliofemoral and patellofemoral ligaments are intact. The piriformis muscles are symmetric bilaterally. Degenerative fraying of the labrum. Diffuse thinning and fraying of the articular cartilage with proliferative and subchondral sclerotic changes involving the superior acetabulum. No fracture or dislocation. Diffuse red marrow replacement is noted. Sacroiliac joints are symmetric. No abnormal bursal fluid collections. Intrapelvic structures are unremarkable Impression: 1. No evidence of traumatic injury to the left hip 2. Mild left hip osteoarthrosis PROCEDURE INTERPRETED AT [facility] DEPARTMENT OF RADIOLOGY Final Report Signed by: Jimmy Lucas
[2016-12-17 17:21] LABS: Apearance,Urine CLOUDY (Clear); Bacteria,Urine Many /HPF (Few); Bilirubin,Urine Negative (Negative); Blood, Urine Large mg/dL (Negative); Glucose,Urine (UA) Negative (Negative); Ketones,Urine Negative (Negative); Nitrite,Urine Positive (Negative); Protein,Urine 30 MG/DL; RBC,Urine 4 /HPF (0-4); Squamous Epithelial Cell,Urine Occasional /HPF (0-10); Urine Color Yellow (Yellow); Urine Specific Gravity 1.009 (1.001-1.035); Urine Urobilinogen < 2.0 EU/DL (0.2-1.0); WBC,Urine 329 /HPF (0-6)
[2016-12-17 17:54] LABS: Hematocrit 22.7 VOL% (35.7-47.0); Hemoglobin 7.7 GM/DL (12.0-16.0)
[2016-12-17 21:37] LABS: Hematocrit 25.3 VOL% (35.7-47.0); Hemoglobin 8.3 GM/DL (12.0-16.0)
[2016-12-18] MEDS: GABAPENTIN 100 MG CAPSULE PO SCH ×4 (00:53→20:18)
[2016-12-18] MEDS: ACETAMINOPHEN 325 MG TABLET PO PRN ×2 (01:33→16:59)
[2016-12-18] MEDS: ONDANSETRON 4 MG/2 ML VIAL IV PRN (01:35)
[2016-12-18 06:48] LABS: Hematocrit 22.4 VOL% (35.7-47.0); Hemoglobin 7.7 GM/DL (12.0-16.0)
[2016-12-18] MEDS ORDERED: NITROFURANTOIN MACRO/MONO 100 MG CAPSULE PO SCH (07:00)
[2016-12-18] MEDS ORDERED: SODIUM CHLORIDE 0.9% 250 ML IV PRN (08:17)
--- NOTE | 2016-12-18 09:09 | Family Practice Progress Note ---
Family Practice - PN: Subj Interval history: PCP: ,outside [facility] on case: GI, Neurologist, pt admitted for rectal bleeding, H/H low,EGD today AM,and blood transfusion, weakness, slurry speech improved .Had hypotension at admission,improved pt has h/o Anemia, ext hemorrhoids, Ulcerative proctitis, parkinson's disease, General anxiety disorder, Pt seen and examined at 4E, lying in bed, mentions she feels cold, no BM with blood since admission,passing flatus, no nausea /vomiting/chest pain or SOB, no abdominal pain, no headaches or dizziness, No overnight events reported by the nurse Pt is ok with KYE aly placement, Exam (Progress Note) - Constitutional Vitals: Period Temp Pulse Resp BP Sys/Adrian Pulse Ox Last 24 Hr 97.4 F-99.0 F 67-87 18-20 87-116/51-71 94-99 Exam: General Examination: GENERAL APPEARANCE: alert and oriented, pleasant, in no acute distress, elderly female patient lying in bed. HEENT: pupils equal, round, reactive to light and accommodation, cannot close her eyes completely,. EYES: extraocular movement intact (EOMI), conjunctiva clear, normal . NECK/THYROID: neck supple, full range of motion, no cervical lymphadenopathy, no thyromegaly . HEART: regular rate and rhythm, no murmurs, rubs, gallops . LUNGS: clear to auscultation bilaterally, no wheezes, rales, rhonchi . ABDOMEN: soft, nontender, nondistended, no organomegaly , bowel sounds present . EXTREMITIES: no edema , NEUROLOGIC: alert and oriented x2, cannot close her eyes completely,speech clear , strength 5 /5 bilateral upper extremities, 3/5 right lower extremity, 4/5 left lower extremity, . Results - Labs CBC & BMP: 12/18/16 04:43 12/17/16 05:00 Lab Results: I have reviewed the past 24 hour labs Labs: UA Positive, awaiting CX results - Impressions MRI Lspine Impression: 1. T2 hyperintense lesion within the L2 body with corresponding intermediate signal. Findings felt to represent atypical hemangioma. Six-month follow-up is suggested. 2. Grade 1 anterolisthesis of L5 resulting in moderate right foraminal narrowing, correlate clinically for radicular symptoms - Diagnostic Findings Procedure: MRI: report reviewed by me, X-ray: report reviewed by me Assessment and Plan (1) Rectal bleeding Status: Acute Assessment and plan: Rectal bleeding/hemorrhoids/anemia, EGD today AM, serial H&H.follow GI recommendation,pt will get blood transfusion today, 2. Weakness, hypotension, improving continue IV fluids with K,will hold antihypertensives, 3. Parkinson's disease, continue levodopa carbidopa, fall precautions, continue neurology recommendations, 4. UA +, start Macrobid, day1 today, awaiting Urine Cx results, RFTs improved compared with admission. 5. continue PT/OT recommendations , 6.. General anxiety , stable, on low xanax dosage , prn Current Visit: Yes (2) Weakness Status: Acute Current Visit: Yes (3) Parkinsons disease Status: Chronic Current Visit: Yes (4) Hemorrhoids Status: Chronic Current Visit: Yes (5) Hypotension Status: Acute Current Visit: Yes (6) Anemia Status: Chronic Current Visit: Yes (7) Generalized anxiety disorder Status: Chronic Current Visit: Yes Quality Measures - VTE Contraindication to Pharmacological VTE Prophylaxis: High Risk of Bleeding
[2016-12-18] MEDS: FLUTICASONE 50 MCG NASAL SPRAY 16 GM BOTTLE BOTH NARES SCH (09:31)
[2016-12-18] MEDS: PANTOPRAZOLE 40 MG VIAL IV SCH (09:31)
[2016-12-18] MEDS: CHOLECALCIFEROL 1,000 UNIT TABLET PO SCH (09:32)
[2016-12-18] MEDS: DOCUSATE SODIUM 100 MG CAPSULE PO SCH ×2 (09:32→20:18)
[2016-12-18] MEDS: STALEVO PO SCH ×4 (09:32→20:21)
[2016-12-18] MEDS: LIDOCAINE 5% PATCH TRANSDERM SCH (09:34)
[2016-12-18 09:39] LABS: Basophils % 0.3 % (0.0-0.8); Eosinophils # 0.1 10*3/uL (0.0-0.87); Eosinophils % 2.1 % (0.00-10.9); Hematocrit 23.2 VOL% (35.7-47.0); Hematocrit 23.4 VOL% (35.7-47.0); Hemoglobin 7.8 GM/DL (12.0-16.0); Hemoglobin 7.9 GM/DL (12.0-16.0); Immature Granulocytes % 0.4 %; Immature Granulocytes Absolute 0.03 #; Lymphocytes # 0.7 10*3/uL (1.4-4.0); Lymphocytes % 10.2 % (21.3-54.2); Mean Corpuscular HGB Conc 34.1 GM/DL (32-36); Mean Corpuscular Hemoglobin 31 PG (27-34); Mean Corpuscular Volume 89.9 FL (87-102); Monocytes # 0.4 10*3/uL (0.11-0.8); Monocytes % 5.2 % (1.7-12.7); Neutrophils # 5.6 10*3/uL (1.4-7.4); Neutrophils % 81.8 % (38.7-73.9); Platelet Count 254 T/CUMM (130-400); Red Blood Count 2.58 MC/CUMM (3.8-5.5); Red Cell Distribution Width 13.1 % (9.3-17.3); White Blood Count 6.8 T/CUMM (4-12)
[2016-12-18 10:06] LABS: Calcium 8.1 MG/DL (8.5-10.1); Magnesium 2.1 MG/DL (1.8-2.4); Osmolality,Calculated 277.7 MOS/KG (273-304); Potassium 4.7 MMOL/L (3.5-5.1)
[2016-12-18 10:37] LABS: Hypochromasia 1+; Lymphocytes 2 % (20-55); Microcytosis 1+; Platelet Estimate Adequate; Segmented Neutrophils 95 % (50-85); Total Cells Counted 100
--- NOTE | 2016-12-18 11:24 | Neurology Progress Note ---
Neurology - PN : Subjective Interval history: Seems to be doing better and feeling better. However H&H is low and requiring blood transfusion. No other problems reported. Exam (Progress Note) - Constitutional Vitals: Period Temp Pulse Resp BP Sys/Adrian Pulse Ox Last 24 Hr 97.4 F-99.0 F 67-87 18-20 87-116/51-71 94-99 Exam: GENERAL: Patient is in no acute distress. NECK: Neck is supple. There is no JVD. No carotid bruits present. No thyroid masses. CVS: First and second heart sounds are normal. There is no S3 present. Regular rate and rhythm. RESPIRATORY: Lungs are clear to auscultation without any rales or rhonchi. ABDOMEN: Soft and non-tender. Bowel sounds are present. There is no hepatosplenomegaly. EXT: There is no palpable edema. Peripheral pulses are present. Skin: No rashes Central Nervous system: General: Alert, awake and Oriented x 3 Speech: Fluent Comprehension: Intact and normal Facial expressions: Normal Cranial Nerves: CN1/Olfactory: Normal CN II/ Optic: Normal, Visual Granado unreliable CN III, and : ART & EOMI CN V: Normal & intact CN VII: face is symmetric CNVIII: Normal CN XI/X/XI/XII: Intact and Normal Motor: No cogwheel rigidity seen. Marked tenderness in the lower back and in the left hip Strength in the right 3/5 Strength in the left 3/5 Sensory: Grossly intact for all the modalities of PP, LT and temp sense Reflexes: 1+ and symmetrical Cerebellar function: Normal finger to nose testing. Toes: Equivocal Gait: Not tested at this time Results - Labs CBC & BMP: 12/18/16 09:21 12/18/16 09:21 Assessment and Plan (1) Frequent falls Status: Acute Assessment and plan: MRI LS spine and left hip Current Visit: Yes (2) Parkinsons disease Status: Chronic Assessment and plan: Continue Stalevo 100 mg 3 times a day Continue current observation Current Visit: Yes Quality Measures - VTE Contraindication to Pharmacological VTE Prophylaxis: High Risk of Bleeding
[2016-12-18] MEDS: ALPRAZolam 0.25 MG TABLET PO PRN (11:32)
--- NOTE | 2016-12-18 12:33 | History and Physical Update ---
History and Physical Update - Physical Exam Mental Status: alert and oriented Heart: regular rate and rhythm Lung: clear to auscultation Abdomen: within normal limits Vitals: within normal limits History and Physical Changes: 76-year-old female admitted with symptomatic anemia with hemoglobin of 8. She has iron deficiency. She has had some recent dark stools and complains of dysphagia to solids
--- NOTE | 2016-12-18 12:36 | Operative Note ---
Date of procedure: 12/18/16 Pre-op diagnosis: Iron deficiency anemia, esophageal dysphagia Procedure: Procedure: Esophagogastroduodenoscopy with bougie dilation esophagus Brief clinical abstract: 76-year-old female is admitted with symptomatic anemia with evidence of iron deficiency. She has seen some dark stools and also a few episodes with some bright red blood in her stool. She has not had active bleeding in the hospital. Patient also complains of dysphagia to solids. Indication for procedure: Iron deficiency anemia, esophageal dysphagia Endoscopic findings:[After informed consent was obtained, the patient was placed in the left lateral decubitus position. The gastroscope was inserted in the upper esophagus under direct vision with no resistance encountered. Esophageal mucosa appeared normal down to the squamocolumnar junction. Mild to moderately obstructive fibrous appearing stricture was noted at that level consistent with reflux etiology. Just distal to this was a small hiatal hernia. The endoscope was advanced in the stomach which was carefully examined including retroflexed view of the cardia and fundus with no other abnormalities noted. The pyloric channel, duodenal bulb, second and third portion of the duodenum appeared normal. The endoscope was removed and Collazo dilator size 52 [place] inserted in the upper esophagus and advanced beyond the level of the GE junction with mild resistance encountered. No blood was noted on the dilator afterwards and she had no chest pain. She appeared to tolerate the procedure well. Impression: #1 distal esophageal stricture secondary to GERD-status post bougie dilation #2 hiatal hernia Recommendations: Given iron deficiency, would repeat endoscopy at some point. Could do early next week if she is strong enough to tolerate bowel prep although she states this morning that she does not think she could do that now. I will check back on her Wednesday. Dr. Saucedo production foreman this weekend if needed for GI. Anesthesia: MAC Surgeon / Physician: Carlos Mao Estimated blood loss: none Specimens: none sent Condition: stable Disposition: post procedure unit Results - Labs CBC & BMP: 12/18/16 09:21 12/18/16 09:21 Discharge Plan - Discharge Medications No Action Ondansetron Odt Tab [Zofran Odt] 4 mg PO Q8H PRN PRN Reason: Nausea HYDROcodone/ACETAMIN 10-325 [[place] 10-325] 1 tablet PO Q4HR PRN PRN Reason: Pain Carbid/Levo/Entac 37.5-150-200 [Stalevo 150] 150 mg PO TID Lidocaine 5% Patch [Lidoderm 5% Patch] 1 patch TRANSDERM DAILY Gabapentin 100 mg PO TID PRN PRN Reason: Pain Fluticasone 50 Mcg Nasal [place] [Flonase Nasal [place]] 2 spray BOTH NARES DAILY Aspirin [Ecotrin] 81 mg PO BID ALPRAZolam [Xanax Xr] 0.5 tablet PO BID Esomeprazole Magnesium [Nexium] 40 mg PO DAILY Cholecalciferol (Vitamin D3) [Vitamin D3] 4,000 unit PO DAILY - Follow Up or Referral - Forms/Instructions
--- NOTE | 2016-12-18 12:38 | Anesthesia Post-Op ---
Anesthesia Post OP - Post Ansesthetic Evaluation Patient seen in post op: Yes Resp: within normal limits CV: within normal limits Mental: within normal limits Temp: within normal limits Melt-Ce-Thondsudf: within normal limits Nausea and Vomiting: within normal limits Pain: within normal limits
--- NOTE | 2016-12-18 13:55 | Physician Query Form ---
CLICK EDIT DOCUMENT TO SELECT QUERY ANSWER --> OK --> SIGN Emmy Richards RN Clinical Ice Cream Machine Operator W) [phone] (f) [phone] [email or web address]: Make your selection(s) from the choices in EACH section by typing an "x" and enter comments in the comment section. Please use your independent medical judgment in providing your response. This request does not imply that any particular answer is desired or expected. CLINICAL INDICATORS: (Providers should not edit this section) Based on lab results of creatinine on admission of 1.50 with a GFR of 30 and decreased to 1.00. Pt. treated with IV fluids. Clarify which of the following most accurately represents the patient's renal status: (x ) Acute kidney injury (non-traumatic) ( ) Acute renal failure ( ) Acute renal failure with underlying Chronic Kidney Disease (CKD) - please provide stage below ( ) CKD - please provide stage below ( ) Other, please specify: ( ) Clinically unable to determine Chronic Kidney Disease Stages Source: National Kidney Disease Foundation ( ) Stage I (eGFR > or = 90) ( ) Stage II (eGFR 60 - 89) ( ) Stage III (eGFR 30 - 59) ( ) Stage IV (eGFR 15 - 29) ( ) Stage V (eGFR < 15 or dialysis) COMMENTS: PLEASE ALSO DOCUMENT RESPONSE IN PROGRESS NOTES AND/OR DISCHARGE SUMMARY Use of terms such as suspected, likely, or probable (associated with a specific diagnosis that is being evaluated, monitored, or treated as if it exists) are acceptable and can be restated in the discharge summary if not ruled out. MTDD
[2016-12-18] MEDS: SODIUM CHLOR 0.9% KCL 20 MEQ 20 MEQ/1,000 ML BAG IV SCH (20:18)
[2016-12-18] MEDS: NITROFURANTOIN MACRO/MONO 100 MG CAPSULE PO SCH (20:18)
[2016-12-18 21:23] LABS: Hematocrit 29.6 VOL% (35.7-47.0)
[2016-12-19 06:08] LABS: Hematocrit 29.5 VOL% (35.7-47.0)
[2016-12-19 06:49] LABS: Free T4 (Free Thyroxine) 1.03 NG/DL (0.76-1.46); Thyroid Stimulating Hormone 1.02 uIU/ml (0.358-3.74)
[2016-12-19] MEDS: GABAPENTIN 100 MG CAPSULE PO SCH ×3 (08:59→21:06)
[2016-12-19] MEDS: DOCUSATE SODIUM 100 MG CAPSULE PO SCH ×3 (08:59→21:06)
[2016-12-19] MEDS: LIDOCAINE 5% PATCH TRANSDERM SCH (09:00)
[2016-12-19] MEDS: CHOLECALCIFEROL 1,000 UNIT TABLET PO SCH (09:00)
[2016-12-19] MEDS: NITROFURANTOIN MACRO/MONO 100 MG CAPSULE PO SCH (09:00)
[2016-12-19] MEDS: FLUTICASONE 50 MCG NASAL SPRAY 16 GM BOTTLE BOTH NARES SCH (09:01)
[2016-12-19] MEDS: STALEVO PO SCH ×4 (09:02→21:12)
[2016-12-19] MEDS: PANTOPRAZOLE 40 MG VIAL IV SCH (09:03)
[2016-12-19] MEDS: SODIUM CHLOR 0.9% KCL 20 MEQ 20 MEQ/1,000 ML BAG IV SCH (11:00)
--- NOTE | 2016-12-19 13:09 | Neurology Progress Note ---
Neurology - PN : Subjective Interval history: Seems to be doing okay neurologically. Feeling better. No new problems reported. She is a status post transfusion Exam (Progress Note) - Constitutional Vitals: Period Temp Pulse Resp BP Sys/Adrian Pulse Ox Last 24 Hr 97.5 F-99.4 F 64-85 18-20 105-145/53-75 91-98 Exam: GENERAL: Patient is in no acute distress. NECK: Neck is supple. There is no JVD. No carotid bruits present. No thyroid masses. CVS: First and second heart sounds are normal. There is no S3 present. Regular rate and rhythm. RESPIRATORY: Lungs are clear to auscultation without any rales or rhonchi. ABDOMEN: Soft and non-tender. Bowel sounds are present. There is no hepatosplenomegaly. EXT: There is no palpable edema. Peripheral pulses are present. Skin: No rashes Central Nervous system: General: Alert, awake and Oriented x 3 Speech: Fluent Comprehension: Intact and normal Facial expressions: Normal Cranial Nerves: CN1/Olfactory: Normal CN II/ Optic: Normal, Visual Granado unreliable CN III, and : ART & EOMI CN V: Normal & intact CN VII: face is symmetric CNVIII: Normal CN XI/X/XI/XII: Intact and Normal Motor: No cogwheel rigidity seen. Marked tenderness in the lower back and in the left hip Strength in the right 3/5 Strength in the left 3/5 Sensory: Grossly intact for all the modalities of PP, LT and temp sense Reflexes: 1+ and symmetrical Cerebellar function: Normal finger to nose testing. Toes: Equivocal Gait: Not tested at this time Results - Labs CBC & BMP: 12/19/16 05:55 12/18/16 09:21 Assessment and Plan (1) Frequent falls Status: Acute Current Visit: Yes (2) Parkinsons disease Status: Chronic Assessment and plan: Continue Stalevo 100 mg 3 times a day Okay to go to [facility] when okay with PCP Current Visit: Yes Quality Measures - VTE Contraindication to Pharmacological VTE Prophylaxis: High Risk of Bleeding
--- NOTE | 2016-12-19 14:48 | Internal Med Progress Note ---
Assessment and Plan (1) Anxiety Status: Chronic Current Visit: Yes (2) Dysphagia Status: Chronic Current Visit: Yes (3) Frequent falls Status: Chronic Current Visit: Yes (4) Rectal bleeding Status: Acute Current Visit: Yes (5) Weakness Status: Chronic Current Visit: Yes (6) Anemia Status: Chronic Current Visit: Yes (7) Hemorrhoids Status: Chronic Current Visit: No (8) Parkinsons disease Status: Chronic Current Visit: Yes Internal Medicine - PN: Subj Interval history: This is a 76 year old female patient of Dr. Burrell with history of Parkinson disease, hypotension, hemorrhoids, anemia, who presented to ER with GI bleed. 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 She is supposed to go to rehab, but will remain here until condition stable. Exam (Progress Note) - Constitutional Vitals: Period Temp Pulse Resp BP Sys/Adrian Pulse Ox Last 24 Hr 97.5 F-99.4 F 64-85 18-20 105-145/53-75 91-98 General appearance: no acute distress - Head Head exam: Present: normocephalic - Eye Eye exam: Present: EOMI - Respiratory Respiratory exam: Present: clear to auscultation bilaterally - Cardiovascular Cardiovascular exam: Present: regular rate and rhythm - GI/Abdominal GI/Abdominal exam: Present: soft. Absent: tenderness - Extremities Exam Extremities exam: Absent: edema - Back Exam Back exam: Present: other (thoracic kyphosis) - Neurological Exam Neurological exam: Present: alert, other (mildly slurred speech; hand movements exaggerated) - Psychiatric Psychiatric exam: Present: anxious - Skin Skin exam: Present: warm, dry Results - Labs CBC & BMP: 12/21/16 08:08 12/21/16 08:08 Quality Measures - VTE Contraindication to Pharmacological VTE Prophylaxis: High Risk of Bleeding
[2016-12-19] MEDS: SODIUM CHLORIDE 0.45% 1,000 ML IV SCH (16:06)
[2016-12-19] MEDS: ACETAMINOPHEN 325 MG TABLET PO PRN (16:13)
[2016-12-19] MEDS: ALBUTEROL/IPRATROPIUM 3 ML NEB RESP TX SCH (19:44)
[2016-12-19] MEDS ORDERED: ALPRAZolam 0.25 MG TABLET PO PRN (23:45)
[2016-12-20] MEDS: ALBUTEROL/IPRATROPIUM 3 ML NEB RESP TX SCH ×4 (00:20→19:30)
[2016-12-20] MEDS: SODIUM CHLORIDE 0.45% 1,000 ML IV SCH ×3 (02:57→23:17)
[2016-12-20 03:36] LABS: Basophils % 0.2 % (0.0-0.8); Eosinophils # 0.2 10*3/uL (0.0-0.87); Eosinophils % 3.6 % (0.00-10.9); Hematocrit 28.4 VOL% (35.7-47.0); Hemoglobin 9.4 GM/DL (12.0-16.0); Immature Granulocytes % 0.3 %; Immature Granulocytes Absolute 0.02 #; Lymphocytes # 0.4 10*3/uL (1.4-4.0); Lymphocytes % 6.7 % (21.3-54.2); Mean Corpuscular HGB Conc 33.1 GM/DL (32-36); Mean Corpuscular Hemoglobin 30 PG (27-34); Mean Corpuscular Volume 89.9 FL (87-102); Mean Platelet Volume 10.1 FL (9.6-12.0); Monocytes # 0.3 10*3/uL (0.11-0.8); Monocytes % 4.3 % (1.7-12.7); Neutrophils # 5.2 10*3/uL (1.4-7.4); Neutrophils % 84.9 % (38.7-73.9); Platelet Count 329 T/CUMM (130-400); Red Blood Count 3.16 MC/CUMM (3.8-5.5); Red Cell Distribution Width 13.5 % (9.3-17.3); White Blood Count 6.1 T/CUMM (4-12)
[2016-12-20 04:50] LABS: Alanine Aminotransferase < 6 U/L (13-56); Alkaline Phosphatase 93 U/L (45-117); Aspartate Amino Transferase 12 U/L (0-37); Blood Urea Nitrogen 15 MG/DL (7-18); Calcium 7.7 MG/DL (8.5-10.1); Total Protein 4.9 G/DL (6.4-8.3)
[2016-12-20 04:51] LABS: Glucose 83 MG/DL (74-106); Magnesium 1.7 MG/DL (1.8-2.4); Potassium 4.4 MMOL/L (3.5-5.1); Sodium 136 MMOL/L (136-145)
[2016-12-20] MEDS: CHOLECALCIFEROL 1,000 UNIT TABLET PO SCH (08:46)
[2016-12-20] MEDS: PANTOPRAZOLE 40 MG VIAL IV SCH (08:46)
[2016-12-20] MEDS: STALEVO PO SCH ×4 (08:46→20:01)
[2016-12-20] MEDS: LIDOCAINE 5% PATCH TRANSDERM SCH (08:47)
[2016-12-20] MEDS: DOCUSATE SODIUM 100 MG CAPSULE PO SCH ×2 (08:51→20:01)
[2016-12-20] MEDS: FLUTICASONE 50 MCG NASAL SPRAY 16 GM BOTTLE BOTH NARES SCH (08:52)
[2016-12-20] MEDS: ONDANSETRON 4 MG/2 ML VIAL IV PRN ×2 (17:28→23:20)
[2016-12-20] MEDS: ALPRAZolam 0.25 MG TABLET PO SCH (18:27)
[2016-12-20] MEDS: GABAPENTIN 100 MG CAPSULE PO SCH (20:02)
[2016-12-20] MEDS ORDERED: ALPRAZolam 0.25 MG TABLET PO SCH (21:00)
--- NOTE | 2016-12-20 21:20 | Internal Med Progress Note ---
Assessment and Plan (1) Rectal bleeding Status: Acute Current Visit: Yes (2) Anxiety Status: Chronic Current Visit: Yes (3) Parkinsons disease Status: Chronic Current Visit: Yes (4) Weakness Status: Chronic Current Visit: Yes Internal Medicine - PN: Subj Interval history: This is a 76 year old female patient of Dr. Burrell with history of Parkinson disease, hypotension, hemorrhoids, anemia, who presented to ER with GI bleed. 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 She is supposed to go to rehab, but will remain here until condition stable. She received blood transfusion a couple days ago. Wednesday, Dec 20: She is overall feeling better. The plan is endoscopy tomorrow , and pending results, she will go on to rehab within the next day or so. Stable patient. Exam (Progress Note) - Constitutional Vitals: Period Temp Pulse Resp BP Sys/Adrian Pulse Ox Last 24 Hr 97.5 F-100.2 F 61-86 16-20 114-163/57-80 94-98 General appearance: no acute distress - Respiratory Respiratory exam: Present: clear to auscultation bilaterally - Cardiovascular Cardiovascular exam: Present: regular rate and rhythm - GI/Abdominal GI/Abdominal exam: Present: soft. Absent: tenderness - Extremities Exam Extremities exam: Absent: edema - Neurological Exam Neurological exam: Present: alert - Psychiatric Psychiatric exam: Present: normal mood - Skin Skin exam: Present: warm, dry Results - Labs CBC & BMP: 12/21/16 08:08 12/21/16 08:08 Quality Measures - VTE Contraindication to Pharmacological VTE Prophylaxis: High Risk of Bleeding
[2016-12-20] MEDS: ACETAMINOPHEN 325 MG TABLET PO PRN (23:20)
[2016-12-21] MEDS: ALBUTEROL/IPRATROPIUM 3 ML NEB RESP TX SCH ×3 (00:07→12:14)
[2016-12-21] MEDS: SODIUM CHLORIDE 0.45% 1,000 ML IV SCH (01:35)
[2016-12-21] MEDS: STALEVO PO SCH ×2 (08:07→12:41)
[2016-12-21] MEDS: CHOLECALCIFEROL 1,000 UNIT TABLET PO SCH (08:09)
[2016-12-21] MEDS: ALPRAZolam 0.25 MG TABLET PO SCH (08:10)
[2016-12-21] MEDS: PANTOPRAZOLE 40 MG VIAL IV SCH (08:11)
[2016-12-21] MEDS: DOCUSATE SODIUM 100 MG CAPSULE PO SCH (08:13)
[2016-12-21 08:35] LABS: Basophils % 0.4 % (0.0-0.8); Eosinophils # 0.2 10*3/uL (0.0-0.87); Eosinophils % 4.7 % (0.00-10.9); Hemoglobin 10.7 GM/DL (12.0-16.0); Immature Granulocytes % 0.4 %; Immature Granulocytes Absolute 0.02 #; Lymphocytes # 0.6 10*3/uL (1.4-4.0); Lymphocytes % 11.9 % (21.3-54.2); Mean Corpuscular HGB Conc 34.5 GM/DL (32-36); Mean Corpuscular Hemoglobin 30 PG (27-34); Mean Corpuscular Volume 88.1 FL (87-102); Mean Platelet Volume 9.4 FL (9.6-12.0); Monocytes # 0.3 10*3/uL (0.11-0.8); Monocytes % 6.4 % (1.7-12.7); Neutrophils # 3.6 10*3/uL (1.4-7.4); Neutrophils % 76.2 % (38.7-73.9); Platelet Count 424 T/CUMM (130-400); Red Blood Count 3.52 MC/CUMM (3.8-5.5); Red Cell Distribution Width 13.4 % (9.3-17.3); White Blood Count 4.7 T/CUMM (4-12)
[2016-12-21 08:58] LABS: Calcium 8.1 MG/DL (8.5-10.1); Magnesium 1.7 MG/DL (1.8-2.4); Osmolality,Calculated 272.7 MOS/KG (273-304); Potassium 3.8 MMOL/L (3.5-5.1)
--- NOTE | 2016-12-21 08:58 | Family Practice Progress Note ---
Family Practice - PN: Subj Interval history: PCP: ,outside [facility] on case: GI, Neurologist, pt admitted for rectal bleeding, s/p EGD/dilatation,and blood transfusion,has UTI on Abx pt has h/o Anemia, ext hemorrhoids, Ulcerative proctitis, parkinson's disease, General anxiety disorder, Pt seen and examined at 4E, lying in bed, last BM yesterday ,no blood noted as per pt, no nausea /vomiting/chest pain or SOB, no abdominal pain, no headaches or dizziness, No overnight events reported by the nurse Pt is ok with KYE aly placement, Exam (Progress Note) - Constitutional Vitals: Period Temp Pulse Resp BP Sys/Adrian Pulse Ox Last 24 Hr 97.4 F-98.7 F 61-77 16-18 114-142/57-76 95-97 Exam: General Examination: GENERAL APPEARANCE: alert and oriented, pleasant, in no acute distress, elderly female patient lying in bed. HEENT: pupils equal, round, reactive to light and accommodation, cannot close her eyes completely,. EYES: extraocular movement intact (EOMI), conjunctiva clear, normal . NECK/THYROID: neck supple, full range of motion, no cervical lymphadenopathy, no thyromegaly . HEART: regular rate and rhythm, no murmurs, rubs, gallops . LUNGS: clear to auscultation bilaterally, no wheezes, rales, rhonchi . ABDOMEN: soft, nontender, nondistended, no organomegaly , bowel sounds present . EXTREMITIES: no edema , NEUROLOGIC: alert and oriented x2, cannot close her eyes completely,speech clear , strength 5 /5 bilateral upper extremities, 3/5 right lower extremity, 4/5 left lower extremity, . Results - Labs CBC & BMP: 12/21/16 08:08 12/21/16 08:08 Lab Results: I have reviewed the past 24 hour labs - Diagnostic Findings Procedure: MRI: report reviewed by me Assessment and Plan (1) Rectal bleeding Status: Acute Assessment and plan: Rectal bleeding/hemorrhoids/anemia,s/p EGD /dilatation.and blood transfusion, follow GI recommendation, 2. replace Mg, decrease IVF, eating well. 3. Parkinson's disease, continue levodopa carbidopa, fall precautions, continue neurology recommendations, 4. UTI ,on rocephin, 5. continue PT/OT recommendations , 6.. General anxiety , stable, on low xanax dosage , Discharge plan : [facility] , once cleared by GI, Current Visit: Yes (2) Weakness Status: Chronic Current Visit: Yes (3) Parkinsons disease Status: Chronic Current Visit: Yes (4) Hemorrhoids Status: Chronic Current Visit: No (5) Anemia Status: Chronic Current Visit: Yes (6) Generalized anxiety disorder Status: Chronic Current Visit: Yes (7) UTI (urinary tract infection) Status: Acute Current Visit: Yes Quality Measures - VTE Contraindication to Pharmacological VTE Prophylaxis: High Risk of Bleeding
--- NOTE | 2016-12-21 09:09 | Gastrointestinal Progress Note ---
<Zena Ann - Last Filed: 12/21/16 09:06> Assessment and Plan (1) Hematochezia Status: Acute Assessment and plan: 12/21-no reports of overt bleeding. H&H is stable. Patient continues to wish to not proceed with colonoscopy at present time. Continue to monitor this time. Plan an addendum to followed by Dr. Mao. 12/17-Three month history of rectal bleeding off and on with moderate episode of bright red blood without stool on yesterday. Prior history of UC, hemorrhoids and rectal involvement/proctitis with last colonoscopy in 2014. Last EGD in 2015 with stricture with dilation and hiatal hernia. H&H 8.5/25.3 with no further reports of overt bleeding. Stools for occult blood pending. Clear liquid diet. Plan an addendum to follow by Dr. Mao. Current Visit: No (2) Dysphagia Status: Acute Assessment and plan: 12/21-dysphagia improved post dilation on Wednesday. Tolerating diet at this time. Plan an addendum to followed by Dr. Mao. 12/17-history of dysphagia with esophageal stricture and dilation most recently in 2015, with complaints of difficulty swallowing pills. Reported 20 pound weight loss over past year with decreased appetite. Plan an addendum to followed by Dr. Mao. Current Visit: Yes Gastroenterology - PN: Subj Interval history: CC: Anemia, dysphagia Patient seen awake and alert lying in bed. States she was doing fairly well until she had what she calls an episode of her Parkinson's this weekend with great difficulty feeding herself. She feels like her Parkinson's medicines need to be adjusted due to this. She does state she is swallowing some better. She denies any overt bleeding. Discussed findings of EGD on Wednesday with patient including esophageal stricture with dilation and hiatal hernia. Patient states she is still not strong enough to discuss bowel prep for colonoscopy. H&H is stable at 10.7/31.0. She is required no further transfusions since admission. Abdomen is soft, nontender. ROS: Denies shortness of breath or chest pain Exam (Progress Note) - Constitutional Vitals: Period Temp Pulse Resp BP Sys/Adrian Pulse Ox Last 24 Hr 97.4 F-98.7 F 61-77 16-18 114-142/57-76 95-97 General appearance: normal weight, no acute distress - Head Head exam: Present: normal inspection, normocephalic - Eye Eye exam: Present: other (Lids and conjunctive are unremarkable). Absent: scleral icterus - ENT ENT exam: Present: normal exam, normal oropharynx - Neck Neck exam: Present: normal inspection - Respiratory Respiratory exam: Present: clear to auscultation bilaterally. Absent: rales, rhonchi, wheezes - Cardiovascular Cardiovascular exam: Present: regular rate and rhythm. Absent: diastolic murmur , JVD, systolic murmur - GI/Abdominal GI/Abdominal exam: Present: normal bowel sounds, soft. Absent: ascites, distended, mass, organomegaly, tenderness - Extremities Exam Extremities exam: Present: normal inspection, full ROM - Back Exam Back exam: Present: normal inspection - Neurological Exam Neurological exam: Present: alert, oriented X3 - Psychiatric Psychiatric exam: Present: normal affect, normal mood - Skin Skin exam: Present: normal color, warm, dry Results - Labs CBC & BMP: 12/21/16 08:08 12/20/16 01:58 Lab Results: I have reviewed the past 24 hour labs <Carlos Mao - Last Filed: 12/21/16 13:37> Exam (Progress Note) - Constitutional Vitals: Period Temp Pulse Resp BP Sys/Adrian Pulse Ox Last 24 Hr 97.2 F-98.7 F 64-77 16-20 131-183/63-79 95-99 Results - Labs CBC & BMP: 12/21/16 08:08 12/21/16 08:08
[2016-12-21] MEDS ORDERED: MAGNESIUM SULF RIDER 4 GM in PREMIX 1 EACH IV PRN (09:15)
[2016-12-21] MEDS ORDERED: MAGNESIUM SULF RIDER 2 GM in PREMIX 1 EACH IV PRN (09:15)
[2016-12-21] MEDS ORDERED: SODIUM CHLORIDE 0.45% 1,000 ML IV SCH (09:30)
[2016-12-21] MEDS: FLUTICASONE 50 MCG NASAL SPRAY 16 GM BOTTLE BOTH NARES SCH (10:44)
[2016-12-21] MEDS: LIDOCAINE 5% PATCH TRANSDERM SCH (10:44)
[2016-12-21] MEDS ORDERED: GABAPENTIN 100 MG CAPSULE PO ONE (11:00)
[2016-12-21 11:51] VITALS: BP 131/63
[2016-12-21] MEDS: ONDANSETRON 4 MG/2 ML VIAL IV PRN (11:59)
--- NOTE | 2016-12-21 13:46 | Discharge Summary ---
Hospital Course - Hospital Course Hospital Course: PCP: Dr.farrar pizarro,[facility] Consultants on case: Neurologist, GI pt admitted for rectal bleeding, weakness, slurry speech from clinic, came in as a walk-in to my clinic pt has h/o Anemia, ext hemorrhoids, Ulcerative proctitis, parkinson's disease on the Stalevo, General anxiety disorder. pt felt weak,tired, .no head injury, had dizziness on and off , no new vision issues,unsteady gait since 3 days, fall 3 days ago X1, uses walker to ambulate, Patient has been taking [place] 10/325 twice daily to 3 times daily, Xanax 0.5 mg twice daily to 3 times daily ? At home. had hypotension, improved after IV fluids. Her blood pressure meds were held during the hospital stay, secondary to hypotension. Her opioid meds were held, and Xanax was tapered to 0.25 mg twice daily/as needed. slurred speech could be from Parkinson's, improved during the hospital stay. Neurology was consulted, head CT from 12/16/2016, showed no acute intracranial hemorrhage/infarction, anticoagulants were held secondary to GI bleed. PT/OT, swallow eval was done during the hospital stay. Since patient had rectal bleeding, along with loss of weight, dysphagia to solids, and chronic history of anemia, GI was consulted for further workup. Patient did not have any rectal bleed, after admission. Serial H&H were followed. Received blood transfusion 2, on 12/21/2016, initially was kept n.p.o. and her diet was advanced as tolerated. EGD done on 12/18/2016, by , showed Impression: #1 distal esophageal stricture secondary to GERD-status post bougie dilation #2 hiatal hernia. Since no further gross GI bleeding was noted, outpatient 6 weeks clinic follow- up was advised with repeat H&H, C scope if needed as outpatient Patient had UTI during the hospital stay, antibiotics were started and was discharged on oral antibiotics based on sensitivity. Patient also complained of back and hip pain, during the hospital stay for which imaging was done, showed mild left hip osteoarthritis on MRI, please refer to the results. Her electrolytes were replaced as needed, thyroid lab profile was normal Her H&H at the time of discharge on 12/21/2016 was 10.7/31, please refer the labs. Discussed with patient in detail about opioid, benzodiazepines medication addiction, in need of tapering herself out of the medication, since history of frequent fals,Also her [id number], Ms.conchis Diop, nurse with [employer] was updated about patient's status from time to time, discussed placement options, and include medications management, specially as outpt, [facility], Diagnosis - Discharge Diagnosis (1) Rectal bleeding Status: Acute (2) Weakness Status: Chronic (3) Parkinsons disease Status: Chronic (4) Hemorrhoids Status: Chronic (5) Anemia Status: Chronic (6) Generalized anxiety disorder Status: Chronic (7) UTI (urinary tract infection) Status: Acute (8) Dysphagia Status: Chronic (9) Frequent falls Status: Chronic Specialty Discharge - Follow Up or Referrals Follow up with: Carlos Mao MD [Physician] - 01/26/17 2:15 pm (TO HAVE AN APPT WITH DR MAO IN 6WEEKS WITH A HEMOGLOBIN) Anatoly Burrell MD [Physician] - (Patient to call clinic [phone], at the time of discharge from [facility] for appointment.) Discharge Plan - Discharge Data Disposition: Disch/Xfer- Rehab Fac Condition at Discharge: Stable Discharge Diet: advance to your usual diet Activity: as per physical therapy - Discharge Medications New ALPRAZolam [Xanax] 0.25 mg PO DAILY tablet ALPRAZolam [Xanax] 0.25 mg PO BEDTIME tablet Nitrofurantoin Macro/[place] [Macrobid] 100 mg PO Q12H #10 capsule Continue Ondansetron Odt Tab [Zofran Odt] 4 mg PO Q8H PRN PRN Reason: Nausea Carbid/Levo/Entac 37.5-150-200 [Stalevo 150] 150 mg PO TID Lidocaine 5% Patch [Lidoderm 5% Patch] 1 patch TRANSDERM DAILY Gabapentin 100 mg PO TID PRN PRN Reason: Pain Fluticasone 50 Mcg Nasal [place] [Flonase Nasal [place]] 2 spray BOTH NARES DAILY Esomeprazole Magnesium [Nexium] 40 mg PO DAILY Cholecalciferol (Vitamin D3) [Vitamin D3] 4,000 unit PO DAILY Discontinued HYDROcodone/ACETAMIN 10-325 [[place] 10-325] 1 tablet PO Q4HR PRN PRN Reason: Pain Aspirin [Ecotrin] 81 mg PO BID ALPRAZolam [Xanax Xr] 0.5 tablet PO BID - Follow Up or Referral Follow Up: Carlos Mao MD [Physician] - 01/26/17 2:15 pm (TO HAVE AN APPT WITH DR MAO IN 6WEEKS WITH A HEMOGLOBIN) Anatoly Burrell MD [Physician] - (Patient to call clinic [phone], at the time of discharge from [facility] for appointment.) - Forms/Instructions Exam - Constitutional Vitals: Period Temp Pulse Resp BP Sys/Adrian Pulse Ox Last 24 Hr 97.2 F-98.7 F 64-77 16-20 131-183/63-79 95-99 Exam: General Examination: GENERAL APPEARANCE: alert and oriented, pleasant, in no acute distress, elderly female patient lying in bed. HEENT: pupils equal, round, reactive to light and accommodation, cannot close her eyes completely,. EYES: extraocular movement intact (EOMI), conjunctiva clear, normal . NECK/THYROID: neck supple, full range of motion, no cervical lymphadenopathy, no thyromegaly . HEART: regular rate and rhythm, no murmurs, rubs, gallops . LUNGS: clear to auscultation bilaterally, no wheezes, rales, rhonchi . ABDOMEN: soft, nontender, nondistended, no organomegaly , bowel sounds present . EXTREMITIES: no edema , NEUROLOGIC: alert and oriented x2, cannot close her eyes completely,speech clear , strength 5 /5 bilateral upper extremities, 3/5 right lower extremity, 4/5 left lower extremity, . Discharge Results Procedures and tests throughout hospitalization: Pending Orders 12/18/16 14:50 Occult Blood, Stool Routine Labs on day of discharge: Labs from last 24 hours 12/21/16 12/21/16 08:08 08:08 WBC 4.7 RBC 3.52 L Hgb 10.7 L Hct 31.0 L MCV 88.1 MCH 30 MCHC 34.5 RDW 13.4 Plt Count 424 H D MPV 9.4 L Neut % (Auto) 76.2 H Lymph % (Auto) 11.9 L [place] % (Auto) 6.4 Eos % (Auto) 4.7 Baso % (Auto) 0.4 Neut # (Auto) 3.6 Lymph # (Auto) 0.6 L [place] # (Auto) 0.3 Eos # (Auto) 0.2 Baso # (Auto) 0.0 Immature Gran % 0.4 Nucleated RBC % 0.0 Immature Gran # 0.02 Nucleated RBCs # 0.00 Immature Plt Fraction 0.0 Sodium 138 Potassium 3.8 Chloride 107 Carbon Dioxide 25 Anion Gap 9.8 BUN 9 Creatinine 0.80 GFR Calculation 66 BUN/Creatinine Ratio 11.00 Glucose 85 Calculated Osmolality 272.7 L Calcium 8.1 L Magnesium 1.7 L - Impressions Urine culture from 12/17/2016, more than 100,000 CFU, E. coli, sensitivity report reviewed. - Imaging and Cardiology Procedure: CT: report reviewed by me, MRI: report reviewed by me - Additional Comments MRI of lumbar spine, 12/17/2016 Impression: 1. T2 hyperintense lesion within the L2 body with corresponding intermediate signal. Findings felt to represent atypical hemangioma. Six-month follow-up is suggested. 2. Grade 1 anterolisthesis of L5 resulting in moderate right foraminal narrowing, correlate clinically for radicular symptoms, MRI of left hip Impression: 1. No evidence of traumatic injury to the left hip 2. Mild left hip osteoarthrosis DS: Provider Date of admission: 12/16/16 15:34 Primary care physician: Rosalinda Tejeda Attending physician on admission: Anatoly Burrell MD Consults: 12/16/16 15:34 Consult to Case Mgmt/Social Srvs [CONS] Routine Reason for Case Mgmt/Social Srvs: Discharge Planning 12/16/16 16:49 Consult to Physician [CONS] Routine Comment: gi bleeding;anemia Consulting Provider: Carlos Mao Consulting Provider Notified: Yes When should Consulting Provider be notified: Now Consult to Specialist Group: Gastroenterology When should Consulting Provider be notified: Now Person Notified: WILLY Date Notified: 12/16/16 Time Notified: 16:54 12/16/16 16:51 Consult to Physician [CONS] Routine Comment: parkinsons Consulting Provider: Misael Cheung 12/16/16 17:04 Consult to Dietitian [CONS] Routine Reason for Dietitian: Diet Instruction 12/16/16 22:57 Consult to Occupational Therapy [CONS] Routine Reason for Occupational Therapy: Evaluate and Treat 12/17/16 09:36 Consult to Case Mgmt/Social Srvs [CONS] Routine Reason for Case Mgmt/Social Srvs: Rehab 12/17/16 13:19 Consult to Physical Therapy [CONS] Routine Reason for Physical Therapy: Evaluate and Treat Start Therapy: Today Consult Comment: Need strengthening for unsteady gait Discharging clinician: Anatoly Burrell MD
== END 2016-12-21 15:07 | DRG 378 ==
LOC: N.4E 15:47
PROVIDERS: ADMIT Family Medicine; ATTEND Family Medicine

== ENCOUNTER 2016-12-22 18:04 | Inpatient (IN) ==
[2016-12-22] MEDS ORDERED: SODIUM CHLORIDE 0.9% 500 ML IV STA (18:36)
--- NOTE | 2016-12-22 18:41 | EKG Report ---
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
--- NOTE | 2016-12-22 18:42 | Emergency Department Note ---
Arrival - Arrival Chief Complaint: Altered Mental Status Stated Complaint: altered mental statua ED Nursing Triage Note: Sent from [facility] for syncope and confusion - pt is in rehab at [facility] - pt has a episode where her eyes rolled back in her head and that she had some jerking motions - pt has shown inprovement in s/ s since onset per staff at [facility] Mode of Arrival: Stretcher Limitations: No Limitations Source: Patient, Family Time Seen by Provider: 12/22/16 18:36 - History of Present Illness HPI Narrative: This 76-year-old white female resident of [place] presents after a syncopal spell associated with generalized seizure activity witnessed by her cousin and her nurse. No specific therapy was given and by the time the patient was here she was alert and oriented 3. Currently she has no complaints and is stable medically. She denies any chest pain, shortness of breath, nausea, vomiting, slurred speech, visual changes, dizziness, or focal deficits. Of note the patient does have Parkinson's disease and has been reported to have several falls recently without any specific injuries. She was evaluated for an occult fracture of the left hip with an MRI 6 days ago which was negative. At rest in bed she is in no acute distress. Onset (ago): hour(s) (Patient presents 1 hour post incident) Allergies/Adverse Reactions: Allergies Allergy/AdvReac Type Severity Reaction Status Date / Time celecoxib [From Celebrex] Allergy Verified 12/21/16 16:40 cephalexin [From Keflex] Allergy Verified 12/21/16 16:40 iodine Allergy Redness of Verified 12/21/16 16:40 Skin levofloxacin [From Levaquin] Allergy Swelling Verified 12/21/16 16:40 of Lip/Tongue/Throat mesalamine [From Asacol] Allergy Verified 12/21/16 16:40 metronidazole [From Flagyl] Allergy Verified 12/21/16 16:40 Penicillins Allergy Swelling Verified 12/21/16 16:40 of Lip/Tongue/Throat sulfamethoxazole Allergy Swelling Verified 12/21/16 16:40 [From Bactrim] of Lip/Tongue/Throat trimethoprim [From Bactrim] Allergy Swelling Verified 12/21/16 16:40 of Lip/Tongue/Throat Home Medications: Home Medications Medication Instructions Recorded Confirmed Type Carbid/Levo/Entac 37.5-150-200 150 mg PO TID 02/12/15 12/21/16 History [Stalevo 150] Fluticasone 50 Mcg Nasal [place] 2 spray BOTH NARES DAILY 02/12/15 12/21/16 History [Flonase Nasal [place]] Gabapentin 100 mg PO TID PRN 02/12/15 12/21/16 History Lidocaine 5% Patch [Lidoderm 5% 1 patch TRANSDERM DAILY 02/12/15 12/21/16 History Patch] Ondansetron Odt Tab [Zofran Odt] 4 mg PO Q8H PRN 02/12/15 12/21/16 History Cholecalciferol (Vitamin D3) 4,000 unit PO DAILY 12/16/16 12/21/16 History [Vitamin D3] Esomeprazole Magnesium [Nexium] 40 mg PO DAILY 12/16/16 12/21/16 History ALPRAZolam [Xanax] 0.25 mg PO BEDTIME tablet 12/21/16 12/21/16 Rx ALPRAZolam [Xanax] 0.25 mg PO DAILY tablet 12/21/16 12/21/16 Rx Nitrofurantoin Macro/[place] 100 mg PO Q12H #10 capsule 12/21/16 12/21/16 Rx [Macrobid] Review of System - Review of System 12 point system: reviewed and no additional remarkable complaints except as stated - Review of System Constitutional: Present: as per HPI Respiratory: Present: as per HPI Cardiovascular: Present: as per HPI Gastrointestinal: Present: as per HPI Neurological: Present: as per HPI Medical,Surgical,& Family Hx - Medical History Cardio: History of: Cardiac Dysrhythmia, Hypertension (Resolved), Valvular Heart Disease, Cardiovascular Problems No history of: Aneurysm, Cerebrovascular Disease, Congenital Heart Disease, CHF, CAD, [place], Pacemaker, PVD Psychological: History of: Anxiety Disorders (on Xanax) No history of: ADHD, Behavior Problems, Bipolar Disorder, Depression, Previous Suicide Attempt, Psychiatric/Substance Abuse Tx, Schizophrenia, Violent Behavior, Psychiatric Problems Neurology: History of: Parkinson's Disease, TIA (12/2013), Vertigo (IN PAST) No history of: Brain Aneurysm, Cerebral Hemorrhage, Cerebrovascular Accident , Cerebral Palsy, Dementia, Migraine, Multiple Sclerosis, Peripheral Neuropathy , Seizures, Neurologocal Cancer HEENT: History of: Eye Problem (GLASSES, CATARACTS) No history of: Ear Problem, Dental Problems, Glaucoma, Oral Cancer, HEENT Problems Endocrine: No history of: Adrenal Disease, Diabetes Mellitus (IDDM), Diabetes Mellitus ( NIDDM), Dyslipidemia, Thyroid Disorder, Endocrine Cancer, Endocrine Problems Rheumatology: No history of;: Fibromyalgia, Gout, Myasthenia Gravis, Psoriasis, Rheumatoid Arthritis, Sjogrens, Systemic Lupus Erythematosus, Rheumatological Problems Respiratory: History of: Obstructive Sleep Apnea (Dr. Zapata told pt she needed sleep study but has not had) No history of: Asthma, Bronchitis, COPD, Intubation, Pulmonary Embolism, Pulmonary Hypertension, Pneumonia, Lung Cancer, Respiratory Problems Renal: No history of: Renal (Kidney) Cancer, Dialysis, Renal Failure, Renal Problems Genitourinary: History of: Bladder Problem, Recurring Urinary Tract Infections No history of: Kidney Stones, Genitourinary Cancer, Problems Gastrointestinal: History of: Diverticulitis/ Diverticulosis, GERD, Gastrointestinal Bleed, Hemorrhoids, Hematochezia, Ulcerative Colitis No history of: Bowel Obstruction, Clostridium Difficile, Crohn's Disease, Esophageal Varices, Hepatitis, Liver Problems, Pancreatitis, Polyps, Gastrointestinal Cancer Musculoskeletal: History of: Amputation (2 toes on left foot removed, osteomylitis.), Musculoskeletal Problems (chronic pain, falls) No history of: Back/Neck Problems, Degenerative Disk Disease, Herniated Disk , Osteoporosis, Musculoskeletal Cancer Hematology: History of: Anemia No history of: Blood Transfusion Reaction, Bleeding Problems, Clotting Problems, Sickle Cell Disease, Hematologic Cancer, Blood Disorders Reproductive: No history of: Abnormal Pap Smear, Breast Cancer, Endometriosis, Ectopic , Ovarian Cysts, Complication, Sexually Transmitted Disorders , Reproductive Cancer, Reproductive Problems Other: History of: Anaphylaxis (PCN,SULFA Drugs, Levaquin) No history of: Anesthesia Reactions, Cancer, Eczema, HIV, Malignant Hyperthermia, MRSA, Vancomycin-Resistant Enterococci, Skin Problems, Miscellaneous Medical Problems - Surgical History Cardiac Surgeries: Patient Denies: Femoral-Popliteal Bypass Graft, Cardiac Catheterization, Cardiac Surgery, Carotid Endarterectomy, Internal Defibrillator, Vascular Access Devices Thoracic Surgeries: Patient denies;: Kidney (Renal Surgery), Lithotripsy, Nephrectomy, Organ Transplant, Lobectomy Neurologic Surgeries: Patient denies: Brain Aneurysm, Cerebral Hemorrhage, Neurologic Surgery HEENT Surgeries: Patient denies: Carotid Endarterectomy, Eye Surgery, Thyroid Surgery, Tonsilectomy & Adenoidectomy Abdominal Surgeries: Surgical HX of: Colonoscopy, EGD Patient denies: Abdominal Surgery, Appendectomy, Cholecystectomy, Gastric Bypass Surgery, Hernia Repair, Splenectomy Reproductive Surgeries: Patient denies;: Breast Surgery, Section, Cystoscopy, Dilation and Curettage, Genitourinary Surgery, Gynecologic Surgery, Hysterectomy, Tubal Ligation Orthopedic Surgeries: Surgical HX of;: Orthopedic Surgery (TOES AMPUTATED) Patient denies;: Implanted Devices, Spinal Surgery, Total Hip Replacement, Total Knee Replacement - Family History Family History: Reports;: Family Cancer (MOther, (breast)), Family Diabetes ( Brother, Daughter), Family Heart Disease (Father,Mother, Brothers), Family Hypertension (Father), Family Stroke (Father, Mother, Daughter) Denies;: Family Anesthesia Reaction, Family Psychiatric Problems - Social History Smoking Status: Former smoker Frequency of Alcohol Use: None Type of Drug Use: None Exam Physical Examination: GENERAL: Well developed, well nourished elderly white female in no acute distress. HEENT: Normocephalic. No trauma. Moist mucous membranes. EOMI. PERRLA. ENT NML NECK: Supple. No adenopathy. CARDIAC: Regular. No murmurs. Heart rate 100, O2 sat 99% CHEST: Clear to auscultation. No respiratory distress. ABDOMEN: Soft. Nontender. Active bowel sounds. EXTREMITIES: No trauma. Normal ROM. No pedal edema. SKIN: No diaphoresis. No rash. NEURO: Alert. Oriented 3. Motor, sensory, vibratory intact. No focal deficits. Vital Signs: Vital Signs Temperature 97.1 F L 12/22/16 18:21 Pulse Rate 95 H 12/22/16 18:30 Respiratory Rate 20 12/22/16 18:30 Blood Pressure 163/89 12/22/16 18:30 O2 Sat by Pulse Oximetry 98 12/22/16 18:30 Course - Reevaluation(s) Reevaluation #1: Chest with family the need for hospitalization given both no onset seizure as well as infiltrate on left chest - Consultations Consultation #1: Discussed with Dr. Burrell who will admit for further evaluation treatment Results - Labs CBC & BMP: 12/22/16 18:17 12/22/16 18:17 Labs: I reviewed the lab and noted low hematocrit, low potassium, and slightly bumped prolactin consistent with seizure - Impressions EKG: Sinus tachycardia with rare PAC with normal NE interval and QRS duration. Diffuse nonspecific ST changes. But no acute injury pattern noted. - Diagnostic Findings Procedure: Chest x-ray: image reviewed by me, report reviewed by me (Early left lower lobe infiltrate), CT: image reviewed by me, report reviewed by me (Head: Microvascular ischemia and cerebral atrophy, both to a mild degree no acute injury noted.) Disposition Clinical Impression: New-onset seizures, Pneumonia left lower lobe Case discussed with: patient, patient's family Disposition: Still a Patient Time of Disposition: 19:48
[2016-12-22 18:44] LABS: Basophils % 0.3 % (0.0-0.8); Eosinophils # 0.2 10*3/uL (0.0-0.87); Hematocrit 30.8 VOL% (35.7-47.0); Hemoglobin 10.7 GM/DL (12.0-16.0); Immature Granulocytes % 0.6 %; Immature Granulocytes Absolute 0.04 #; Lymphocytes # 0.8 10*3/uL (1.4-4.0); Lymphocytes % 12.7 % (21.3-54.2); Mean Corpuscular HGB Conc 34.7 GM/DL (32-36); Mean Corpuscular Hemoglobin 30 PG (27-34); Mean Corpuscular Volume 86.5 FL (87-102); Mean Platelet Volume 9.3 FL (9.6-12.0); Monocytes # 0.4 10*3/uL (0.11-0.8); Monocytes % 6.3 % (1.7-12.7); Neutrophils # 5.1 10*3/uL (1.4-7.4); Neutrophils % 77.1 % (38.7-73.9); Platelet Count 461 T/CUMM (130-400); Red Blood Count 3.56 MC/CUMM (3.8-5.5); Red Cell Distribution Width 13.1 % (9.3-17.3); White Blood Count 6.6 T/CUMM (4-12)
[2016-12-22 18:58] LABS: Alanine Aminotransferase < 9 U/L (13-56); Albumin 2.8 G/DL (3.4-5.0); Alkaline Phosphatase 117 U/L (45-117); Aspartate Amino Transferase 28 U/L (0-37); Blood Urea Nitrogen 7 MG/DL (7-18); Calcium 8.3 MG/DL (8.5-10.1); Glucose 146 MG/DL (74-106); Osmolality,Calculated 275.7 MOS/KG (273-304); Sodium 138 MMOL/L (136-145); Total Protein 6.5 G/DL (6.4-8.3); Troponin I Only < 0.015 NG/ML (0.00-0.045)
--- NOTE | 2016-12-22 19:15 | CT Report ---
History: Mental status changes. Seizure. Syncopal spell Date: 12/22/2016 Study: CT head without contrast Comparison exam: December 16, [address] sections were obtained through the brain without contrast. The ventricles are midline in position without evidence of hydrocephalus. There is no mass or area of parenchymal hemorrhage. There is no gross CT evidence of acute cortical stroke. There is mild diffuse cerebral atrophy. There is a small amount of ill-defined low density in the periventricular white matter without mass effect compatible with changes of small vessel disease. There is no extra-axial hematoma. The sinuses are generally clear. There is no obvious skull fracture. Impression: No acute intracranial process. No significant interval change This CT exam was performed using one or more the following dose reduction techniques: Automated exposure control, adjustment of the MA and/or KV according to patient size, or use of iterative reconstruction technique. PROCEDURE INTERPRETED AT [facility] DEPARTMENT OF RADIOLOGY Final Report Signed by: Dr. Chinyere Mao
[2016-12-22 19:31] LABS: PT Patient Result 10.9 SECS; Partial Thromboplastin Time 32.3 SECS (0-40)
[2016-12-22] MEDS ORDERED: POTASSIUM BICARB EFFERVESCENT 25 MEQ TABLET PO ONE ×2 (19:35→19:51)
--- NOTE | 2016-12-22 19:35 | XRay Report ---
History: Altered mental status Date: 12/22/2016 Study: Chest x-ray AP portable Comparison exam: December 16, 2016 There is mild cardiomegaly. There is no mediastinal mass. The pulmonary vasculature is upper normal. There is no gross pleural effusion. The right lung is generally clear. There is some minor strandy atelectasis/infiltrate in the left lung base. There are some scattered emphysematous changes. Osseous structures are similar. Impression: Minor strandy atelectasis/infiltrate in the left lung base. Mild pneumonia cannot be excluded. Otherwise unchanged PROCEDURE INTERPRETED AT [facility] DEPARTMENT OF RADIOLOGY Final Report Signed by: Dr. Chinyere Mao
[2016-12-22] MEDS ORDERED: AZITHROMYCIN INJ 500 MG in SODIUM CHLORIDE 0.9% 250 ML IV STA (19:39)
[2016-12-22] MEDS ORDERED: ALPRAZolam 0.25 MG TABLET PO PRN (19:50)
[2016-12-22] MEDS ORDERED: SODIUM CHLORIDE 0.9% 250 ML IV ONE (19:51)
[2016-12-22] MEDS ORDERED: AZITHROMYCIN 500 MG VIAL IV ONE (19:51)
[2016-12-22] MEDS ORDERED: CARBIDOPA/LEVODOPA 25-100 MG TABLET PO SCH (21:00)
[2016-12-22] MEDS ORDERED: GABAPENTIN 100 MG CAPSULE PO SCH (21:00)
[2016-12-22] MEDS: levETIRAcetam 500 MG TABLET PO SCH (21:32)
[2016-12-22] MEDS ORDERED: GABAPENTIN 100 MG CAPSULE ONE (21:34)
[2016-12-22 23:23] LABS: Apearance,Urine CLEAR (Clear); Bacteria,Urine Occasional /HPF (Few); Bilirubin,Urine Negative (Negative); Blood, Urine Large mg/dL (Negative); Glucose,Urine (UA) Negative (Negative); Hyaline Casts,Urine 3 /LPF (0-3); Ketones,Urine 20 mg/dL (Negative); Mucus,Urine Occasional /LPF (Occasional); Nitrite,Urine Negative (Negative); Protein,Urine Negative; RBC,Urine 29 /HPF (0-4); Renal Epithelial Cells,Urine Occasional /HPF (<1); Squamous Epithelial Cell,Urine Occasional /HPF (0-10); Urine Color Yellow (Yellow); Urine Specific Gravity 1.005 (1.001-1.035); Urine Urobilinogen < 2.0 EU/DL (0.2-1.0); WBC,Urine 17 /HPF (0-6)
[2016-12-22 23:42] LABS: Barbiturates Screen,Urine Negative (Negative); Benzodiazepines Screen,Urine Negative (Negative); Cannabinoid Screen,Urine Negative (Negative); Opiate Screen,Urine Negative (Negative); Phencyclidine Screen,Urine Negative (Negative)
[2016-12-23] MEDS ORDERED: LORazepam 2 MG/1 ML VIAL IV PRN (00:34)
[2016-12-23] MEDS ORDERED: ACETAMINOPHEN 325 MG TABLET PO PRN (00:41)
[2016-12-23 05:22] LABS: Basophils % 0.5 % (0.0-0.8); Eosinophils # 0.1 10*3/uL (0.0-0.87); Eosinophils % 2.4 % (0.00-10.9); Hematocrit 25.7 VOL% (35.7-47.0); Hemoglobin 8.8 GM/DL (12.0-16.0); Immature Granulocytes % 0.5 %; Immature Granulocytes Absolute 0.02 #; Lymphocytes # 0.6 10*3/uL (1.4-4.0); Lymphocytes % 13.8 % (21.3-54.2); Mean Corpuscular HGB Conc 34.2 GM/DL (32-36); Mean Corpuscular Hemoglobin 30 PG (27-34); Mean Corpuscular Volume 88.6 FL (87-102); Mean Platelet Volume 9.5 FL (9.6-12.0); Monocytes # 0.2 10*3/uL (0.11-0.8); Monocytes % 5.1 % (1.7-12.7); Neutrophils # 3.2 10*3/uL (1.4-7.4); Neutrophils % 77.7 % (38.7-73.9); Platelet Count 393 T/CUMM (130-400); Red Cell Distribution Width 13.3 % (9.3-17.3); White Blood Count 4.1 T/CUMM (4-12)
[2016-12-23 05:39] LABS: Calcium 8.1 MG/DL (8.5-10.1); Osmolality,Calculated 274.4 MOS/KG (273-304); Potassium 4.1 MMOL/L (3.5-5.1)
[2016-12-23] MEDS ORDERED: cefTRIAXone 1,000 MG in SODIUM CHLORIDE 0.9% 100 ML IV SCH (07:00)
--- NOTE | 2016-12-23 08:43 | Family Practice History&Phys ---
Assessment and Plan (1) Seizures Status: Acute Assessment and plan: Versus syncopal episode, was put on Keppra in the ER, CT head negative. Seizure precautions, fall precautions, consult neurologist. 2. Parkinson's disease continue Stalevo, 3. Anxiety disorder, will start Celexa 10 mg p.o. daily and see if patient tolerates, Xanax 0.25 in p.m. 4. Anemia, will watch for rectal bleeding, H&H 5. Pneumonia, on Rocephin and azithromycin, 6. UTI, continue Rocephin. 7. History of dysphagia, stable Patient's medical status discussed with the family, Ms. Elda diop Current Visit: Yes (2) Hypertension Status: Chronic Current Visit: Yes (3) UTI (urinary tract infection) Status: Acute Current Visit: Yes (4) Anemia Status: Chronic Current Visit: Yes (5) Anxiety Status: Chronic Current Visit: Yes (6) Parkinsons disease Status: Chronic Current Visit: Yes (7) Pneumonia Status: Acute Current Visit: Yes History of Present Illness Chief complaint: Syncopial episode, yesterday X1, transferred from [facility] History of present illness: Ms. Diop is a 76 year old female Patient is brought from [facility], by EMS for syncopial episode1, yesterday. Patient has history of Parkinson's disease on Stalevo, chronic anemia, ulcerative colitis, anxiety disorder, external hemorrhoids,. Patient was admitted from 12/16/2016 to 12/21/2016 for rectal bleeding, weakness, dysphagia status post EGD and dilatation. Had UTI in the past hospitalization, was taking Macrobid from discharge. History obtained from the patient, Patient was upset yesterday afternoon over something, possibly over meds, patient is being tapered off Xanax, also used to take [place] was 1 week ago, , recollects she had this episode of rolling her eyes upwards, feeling weak, was sitting in the chair. After which she lost consciousness, and regained consciousness while she was in ambulance. As per history noted from the ER physician's notes, it was noted that she had movement of the limbs, witnessed by the nurse?, No focal deficits were noted in the ER yesterday.. No head injury, no tongue bite, no urine incontinence or bowel incontinence. No history of seizures in the past prior to this episode. Patient is found to have pneumonia on chest x-ray, in Er,yesterday, on further questioning she does mentions, she had dry cough intermittently since few days. No fever, no chills or sweating.no SOB, Last bowel movement 3 days ago, no blood noticed so far per rectum. Does not complain of dysuria. Home Medications Medication Instructions Recorded Confirmed Type Carbid/Levo/Entac 37.5-150-200 150 mg PO TID 02/12/15 12/22/16 History [Stalevo 150] Fluticasone 50 Mcg Nasal [place] 2 spray BOTH NARES DAILY 02/12/15 12/22/16 History [Flonase Nasal [place]] Gabapentin 100 mg PO TID PRN 02/12/15 12/22/16 History Lidocaine 5% Patch [Lidoderm 5% 1 patch TRANSDERM DAILY 02/12/15 12/22/16 History Patch] Ondansetron Odt Tab [Zofran Odt] 4 mg PO Q8H PRN 02/12/15 12/22/16 History Cholecalciferol (Vitamin D3) 4,000 unit PO DAILY 12/16/16 12/22/16 History [Vitamin D3] Esomeprazole Magnesium [Nexium] 40 mg PO DAILY 12/16/16 12/22/16 History ALPRAZolam [Xanax] 0.25 mg PO BEDTIME tablet 12/21/16 12/22/16 Rx ALPRAZolam [Xanax] 0.25 mg PO DAILY tablet 12/21/16 12/22/16 Rx Nitrofurantoin Macro/[place] 100 mg PO Q12H #10 capsule 12/21/16 12/22/16 Rx [Macrobid] Allergies Allergy/AdvReac Type Severity Reaction Status Date / Time celecoxib [From Celebrex] Allergy Verified 12/21/16 16:40 cephalexin [From Keflex] Allergy Verified 12/21/16 16:40 iodine Allergy Redness of Verified 12/21/16 16:40 Skin levofloxacin [From Levaquin] Allergy Swelling Verified 12/21/16 16:40 of Lip/Tongue/Throat mesalamine [From Asacol] Allergy Verified 12/21/16 16:40 metronidazole [From Flagyl] Allergy Verified 12/21/16 16:40 Penicillins Allergy Swelling Verified 12/21/16 16:40 of Lip/Tongue/Throat sulfamethoxazole Allergy Swelling Verified 12/21/16 16:40 [From Bactrim] of Lip/Tongue/Throat trimethoprim [From Bactrim] Allergy Swelling Verified 12/21/16 16:40 of Lip/Tongue/Throat - Constitutional Constitutional: Present: as per HPI - EENT Eyes: Present: as per HPI Nose, mouth and throat: Present: as per HPI - Cardiovascular Cardiovascular: Present: as per HPI - Respiratory Respiratory: Present: as per HPI - Gastrointestinal Gastrointestinal: Present: as per HPI - Genitourinary Genitourinary: Present: as per HPI - Musculoskeletal Musculoskeletal: Present: as per HPI - Neurological Neurological: Present: as per HPI - Psychiatric Psychiatric: Present: as per HPI - Endocrine Endocrine: Present: as per HPI - Hematologic/Lymphatic Hematologic/Lymphatic: Present: as per HPI Medical,Surgical,& Family Hx - Medical History Cardio: History of: Cardiac Dysrhythmia, Hypertension (Resolved), Valvular Heart Disease, Cardiovascular Problems No history of: Aneurysm, Cerebrovascular Disease, Congenital Heart Disease, CHF, CAD, [place], Pacemaker, PVD Psychological: History of: Anxiety Disorders (on Xanax) No history of: ADHD, Behavior Problems, Bipolar Disorder, Depression, Previous Suicide Attempt, Psychiatric/Substance Abuse Tx, Schizophrenia, Violent Behavior, Psychiatric Problems Neurology: History of: Parkinson's Disease, TIA (12/2013), Vertigo (IN PAST) No history of: Brain Aneurysm, Cerebral Hemorrhage, Cerebrovascular Accident , Cerebral Palsy, Dementia, Migraine, Multiple Sclerosis, Peripheral Neuropathy , Seizures, Neurologocal Cancer HEENT: History of: Eye Problem (GLASSES, CATARACTS) No history of: Ear Problem, Dental Problems, Glaucoma, Oral Cancer, HEENT Problems Endocrine: No history of: Adrenal Disease, Diabetes Mellitus (IDDM), Diabetes Mellitus ( NIDDM), Dyslipidemia, Thyroid Disorder, Endocrine Cancer, Endocrine Problems Rheumatology: No history of;: Fibromyalgia, Gout, Myasthenia Gravis, Psoriasis, Rheumatoid Arthritis, Sjogrens, Systemic Lupus Erythematosus, Rheumatological Problems Respiratory: History of: Obstructive Sleep Apnea (Dr. Zapata told pt she needed sleep study but has not had) No history of: Asthma, Bronchitis, COPD, Intubation, Pulmonary Embolism, Pulmonary Hypertension, Pneumonia, Lung Cancer, Respiratory Problems Renal: No history of: Renal (Kidney) Cancer, Dialysis, Renal Failure, Renal Problems Genitourinary: History of: Bladder Problem, Recurring Urinary Tract Infections No history of: Kidney Stones, Genitourinary Cancer, Problems Gastrointestinal: History of: Diverticulitis/ Diverticulosis, GERD, Gastrointestinal Bleed, Hemorrhoids, Hematochezia, Ulcerative Colitis No history of: Bowel Obstruction, Clostridium Difficile, Crohn's Disease, Esophageal Varices, Hepatitis, Liver Problems, Pancreatitis, Polyps, Gastrointestinal Cancer Musculoskeletal: History of: Amputation (2 toes on left foot removed, osteomylitis.), Musculoskeletal Problems (chronic pain, falls) No history of: Back/Neck Problems, Degenerative Disk Disease, Herniated Disk , Osteoporosis, Musculoskeletal Cancer Hematology: History of: Anemia No history of: Blood Transfusion Reaction, Bleeding Problems, Clotting Problems, Sickle Cell Disease, Hematologic Cancer, Blood Disorders Reproductive: No history of: Abnormal Pap Smear, Breast Cancer, Endometriosis, Ectopic , Ovarian Cysts, Complication, Sexually Transmitted Disorders , Reproductive Cancer, Reproductive Problems Other: History of: Anaphylaxis (PCN,SULFA Drugs, Levaquin) No history of: Anesthesia Reactions, Cancer, Eczema, HIV, Malignant Hyperthermia, MRSA, Vancomycin-Resistant Enterococci, Skin Problems, Miscellaneous Medical Problems - Surgical History Cardiac Surgeries: Patient Denies: Femoral-Popliteal Bypass Graft, Cardiac Catheterization, Cardiac Surgery, Carotid Endarterectomy, Internal Defibrillator, Vascular Access Devices Thoracic Surgeries: Patient denies;: Kidney (Renal Surgery), Lithotripsy, Nephrectomy, Organ Transplant, Lobectomy Neurologic Surgeries: Patient denies: Brain Aneurysm, Cerebral Hemorrhage, Neurologic Surgery HEENT Surgeries: Patient denies: Carotid Endarterectomy, Eye Surgery, Thyroid Surgery, Tonsilectomy & Adenoidectomy Abdominal Surgeries: Surgical HX of: Colonoscopy, EGD Patient denies: Abdominal Surgery, Appendectomy, Cholecystectomy, Gastric Bypass Surgery, Hernia Repair, Splenectomy Reproductive Surgeries: Patient denies;: Breast Surgery, Section, Cystoscopy, Dilation and Curettage, Genitourinary Surgery, Gynecologic Surgery, Hysterectomy, Tubal Ligation Orthopedic Surgeries: Surgical HX of;: Orthopedic Surgery (TOES AMPUTATED) Patient denies;: Implanted Devices, Spinal Surgery, Total Hip Replacement, Total Knee Replacement - Family History Family History: Reports;: Family Cancer (MOther, (breast)), Family Diabetes ( Brother, Daughter), Family Heart Disease (Father,Mother, Brothers), Family Hypertension (Father), Family Stroke (Father, Mother, Daughter) Denies;: Family Anesthesia Reaction, Family Psychiatric Problems - Social History Smoking Status: Former smoker Frequency of Alcohol Use: None Type of Drug Use: None Exam - Constitutional Vitals: Period Temp Pulse Resp BP Sys/Adrian Pulse Ox Last 24 Hr 97.1 F-98.8 F 64-102 17-26 110-163/64-95 98-99 Exam: Examination: GENERAL: Alert, oriented, in no acute distress ,/ female pt, lying in the bed, soto 's in place, O2 NC 2 lit HEENT: normal,,PERRLA. EOMI. Mucous membranes are moist. Cannot close her eyes completely. NECK: Neck is supple. No JVD. No carotid bruit. No thyromegaly. CVS: Regular rate and rhythm. S1 and S2 are normal. RESPIRATORY: Clear to ausculation bilaterally , No wheezes, rales or rhonchi. ABDOMEN: Soft and nontender. Bowel sounds are present. No hepatosplenomegaly. EXT: No edema. ACTUARIAL ANALYST: Patient is awake, alert and oriented, speech no new changes noted, Cranial nerves 2-12 grossly intact except cannot close her eyes completely. Motor strength 5/5 bilateral upper extremities, and lower extremities. No focal deficits noted Results - Labs CBC & BMP: 12/23/16 04:17 12/23/16 04:17 Lab Results: I have reviewed the past 24 hour labs - Diagnostic Findings Procedure: Chest x-ray: report reviewed by me, image reviewed by me, CT: report reviewed by me
[2016-12-23] MEDS: FLUTICASONE 50 MCG NASAL SPRAY 16 GM BOTTLE BOTH NARES SCH (08:44)
[2016-12-23] MEDS: PANTOPRAZOLE 40 MG TABLET PO SCH (08:45)
[2016-12-23] MEDS: levETIRAcetam 500 MG TABLET PO SCH (08:45)
[2016-12-23] MEDS: STALEVO PO SCH ×3 (08:45→20:49)
[2016-12-23] MEDS: AZITHROMYCIN INJ 500 MG in SODIUM CHLORIDE 0.9% 250 ML IV SCH (09:00)
[2016-12-23] MEDS ORDERED: ALPRAZolam 0.25 MG TABLET PO SCH (09:00)
[2016-12-23] MEDS ORDERED: ALPRAZolam 0.25 MG TABLET PO PRN (09:00)
[2016-12-23] MEDS: CITALOPRAM 20 MG TABLET PO SCH (09:07)
[2016-12-23] MEDS: DOCUSATE SODIUM 100 MG CAPSULE PO SCH (09:07)
[2016-12-23] MEDS ORDERED: PROPOFOL 1,000 MG/100 ML BOTTLE IV ONE (11:16)
[2016-12-23] MEDS: ONDANSETRON 4 MG/2 ML VIAL IV PRN ×2 (11:21→18:08)
[2016-12-23] MEDS: cefTRIAXone 1,000 MG in SODIUM CHLORIDE 0.9% 100 ML IV SCH (13:29)
[2016-12-23 13:44] LABS: Apearance,Urine Slightly Hazy (Clear); Bilirubin,Urine Negative (Negative); Blood, Urine Large mg/dL (Negative); Glucose,Urine (UA) Negative (Negative); Hyaline Casts,Urine 5 /LPF (0-3); Ketones,Urine 5 mg/dL (Negative); Mucus,Urine Occasional /LPF (Occasional); Nitrite,Urine Negative (Negative); Protein,Urine Negative; RBC,Urine 361 /HPF (0-4); Squamous Epithelial Cell,Urine Occasional /HPF (0-10); Urine Color Amber (Yellow); Urine Specific Gravity 1.006 (1.001-1.035); Urine Urobilinogen < 2.0 EU/DL (0.2-1.0); WBC,Urine 43 /HPF (0-6)
--- NOTE | 2016-12-23 16:10 | Neurology Consult Note ---
History of Present Illness History of present illness: 76-year-old right-handed white lady with past medical history significant for Parkinson disease, chronic anemia, ulcerative colitis, anxiety disorder, hemorrhoids, dyspepsia recurrent UTI transferred from pulmonary rehab after she had a syncopal episode. She has been recently tapered off of Xanax and she was also using [place] up until a week ago. Family systolic concern about some medication abuse by her. No generalized tonic-clonic activity reported. No tongue biting or urinary incontinence reported. CT of the head revealed no acute abnormalities. No history of seizures in the past. Patient seems to be doing much better and back to her baseline. She wants to go back to [facility] and I am okay with that. Home Medications Medication Instructions Recorded Confirmed Type Carbid/Levo/Entac 37.5-150-200 150 mg PO TID 02/12/15 12/22/16 History [Stalevo 150] Fluticasone 50 Mcg Nasal [place] 2 spray BOTH NARES DAILY 02/12/15 12/22/16 History [Flonase Nasal [place]] Gabapentin 100 mg PO TID PRN 02/12/15 12/22/16 History Lidocaine 5% Patch [Lidoderm 5% 1 patch TRANSDERM DAILY 02/12/15 12/22/16 History Patch] Ondansetron Odt Tab [Zofran Odt] 4 mg PO Q8H PRN 02/12/15 12/22/16 History Cholecalciferol (Vitamin D3) 4,000 unit PO DAILY 12/16/16 12/22/16 History [Vitamin D3] Esomeprazole Magnesium [Nexium] 40 mg PO DAILY 12/16/16 12/22/16 History ALPRAZolam [Xanax] 0.25 mg PO BEDTIME tablet 12/21/16 12/22/16 Rx ALPRAZolam [Xanax] 0.25 mg PO DAILY tablet 12/21/16 12/22/16 Rx Nitrofurantoin Macro/[place] 100 mg PO Q12H #10 capsule 12/21/16 12/22/16 Rx [Macrobid] Allergies Allergy/AdvReac Type Severity Reaction Status Date / Time celecoxib [From Celebrex] Allergy Verified 12/21/16 16:40 cephalexin [From Keflex] Allergy Verified 12/21/16 16:40 iodine Allergy Redness of Verified 12/21/16 16:40 Skin levofloxacin [From Levaquin] Allergy Swelling Verified 12/21/16 16:40 of Lip/Tongue/Throat mesalamine [From Asacol] Allergy Verified 12/21/16 16:40 metronidazole [From Flagyl] Allergy Verified 12/21/16 16:40 Penicillins Allergy Swelling Verified 12/21/16 16:40 of Lip/Tongue/Throat sulfamethoxazole Allergy Swelling Verified 12/21/16 16:40 [From Bactrim] of Lip/Tongue/Throat trimethoprim [From Bactrim] Allergy Swelling Verified 12/21/16 16:40 of Lip/Tongue/Throat 12 point system: reviewed and no additional remarkable complaints except as stated Medical,Surgical,& Family Hx - Medical History Cardio: History of: Cardiac Dysrhythmia, Hypertension (Resolved), Valvular Heart Disease, Cardiovascular Problems No history of: Aneurysm, Cerebrovascular Disease, Congenital Heart Disease, CHF, CAD, [place], Pacemaker, PVD Psychological: History of: Anxiety Disorders (on Xanax) No history of: ADHD, Behavior Problems, Bipolar Disorder, Depression, Previous Suicide Attempt, Psychiatric/Substance Abuse Tx, Schizophrenia, Violent Behavior, Psychiatric Problems Neurology: History of: Parkinson's Disease, TIA (12/2013), Vertigo (IN PAST) No history of: Brain Aneurysm, Cerebral Hemorrhage, Cerebrovascular Accident , Cerebral Palsy, Dementia, Migraine, Multiple Sclerosis, Peripheral Neuropathy , Seizures, Neurologocal Cancer HEENT: History of: Eye Problem (GLASSES, CATARACTS) No history of: Ear Problem, Dental Problems, Glaucoma, Oral Cancer, HEENT Problems Endocrine: No history of: Adrenal Disease, Diabetes Mellitus (IDDM), Diabetes Mellitus ( NIDDM), Dyslipidemia, Thyroid Disorder, Endocrine Cancer, Endocrine Problems Rheumatology: No history of;: Fibromyalgia, Gout, Myasthenia Gravis, Psoriasis, Rheumatoid Arthritis, Sjogrens, Systemic Lupus Erythematosus, Rheumatological Problems Respiratory: History of: Obstructive Sleep Apnea (Dr. Zapata told pt she needed sleep study but has not had) No history of: Asthma, Bronchitis, COPD, Intubation, Pulmonary Embolism, Pulmonary Hypertension, Pneumonia, Lung Cancer, Respiratory Problems Renal: No history of: Renal (Kidney) Cancer, Dialysis, Renal Failure, Renal Problems Genitourinary: History of: Bladder Problem, Recurring Urinary Tract Infections No history of: Kidney Stones, Genitourinary Cancer, Problems Gastrointestinal: History of: Diverticulitis/ Diverticulosis, GERD, Gastrointestinal Bleed, Hemorrhoids, Hematochezia, Ulcerative Colitis No history of: Bowel Obstruction, Clostridium Difficile, Crohn's Disease, Esophageal Varices, Hepatitis, Liver Problems, Pancreatitis, Polyps, Gastrointestinal Cancer Musculoskeletal: History of: Amputation (2 toes on left foot removed, osteomylitis.), Musculoskeletal Problems (chronic pain, falls) No history of: Back/Neck Problems, Degenerative Disk Disease, Herniated Disk , Osteoporosis, Musculoskeletal Cancer Hematology: History of: Anemia No history of: Blood Transfusion Reaction, Bleeding Problems, Clotting Problems, Sickle Cell Disease, Hematologic Cancer, Blood Disorders Reproductive: No history of: Abnormal Pap Smear, Breast Cancer, Endometriosis, Ectopic , Ovarian Cysts, Complication, Sexually Transmitted Disorders , Reproductive Cancer, Reproductive Problems Other: History of: Anaphylaxis (PCN,SULFA Drugs, Levaquin) No history of: Anesthesia Reactions, Cancer, Eczema, HIV, Malignant Hyperthermia, MRSA, Vancomycin-Resistant Enterococci, Skin Problems, Miscellaneous Medical Problems - Surgical History Cardiac Surgeries: Patient Denies: Femoral-Popliteal Bypass Graft, Cardiac Catheterization, Cardiac Surgery, Carotid Endarterectomy, Internal Defibrillator, Vascular Access Devices Thoracic Surgeries: Patient denies;: Kidney (Renal Surgery), Lithotripsy, Nephrectomy, Organ Transplant, Lobectomy Neurologic Surgeries: Patient denies: Brain Aneurysm, Cerebral Hemorrhage, Neurologic Surgery HEENT Surgeries: Patient denies: Carotid Endarterectomy, Eye Surgery, Thyroid Surgery, Tonsilectomy & Adenoidectomy Abdominal Surgeries: Surgical HX of: Colonoscopy, EGD Patient denies: Abdominal Surgery, Appendectomy, Cholecystectomy, Gastric Bypass Surgery, Hernia Repair, Splenectomy Reproductive Surgeries: Patient denies;: Breast Surgery, Section, Cystoscopy, Dilation and Curettage, Genitourinary Surgery, Gynecologic Surgery, Hysterectomy, Tubal Ligation Orthopedic Surgeries: Surgical HX of;: Orthopedic Surgery (TOES AMPUTATED) Patient denies;: Implanted Devices, Spinal Surgery, Total Hip Replacement, Total Knee Replacement - Family History Family History: Reports;: Family Cancer (MOther, (breast)), Family Diabetes ( Brother, Daughter), Family Heart Disease (Father,Mother, Brothers), Family Hypertension (Father), Family Stroke (Father, Mother, Daughter) Denies;: Family Anesthesia Reaction, Family Psychiatric Problems - Social History Smoking Status: Former smoker Frequency of Alcohol Use: None Type of Drug Use: None Exam - Constitutional Vitals: Period Temp Pulse Resp BP Sys/Adrian Pulse Ox Last 24 Hr 97.1 F-98.8 F 64-102 14-26 110-163/64-95 94-100 Exam: GENERAL: Patient is in no acute distress. NECK: Neck is supple. There is no JVD. No carotid bruits present. No thyroid masses. CVS: First and second heart sounds are normal. There is no S3 present. Regular rate and rhythm. RESPIRATORY: Lungs are clear to auscultation without any rales or rhonchi. ABDOMEN: Soft and non-tender. Bowel sounds are present. There is no hepatosplenomegaly. EXT: There is no palpable edema. Peripheral pulses are present. Skin: No rashes Central Nervous system: General: Alert, awake and Oriented x 3 Speech: Fluent Comprehension: Intact and normal Facial expressions: Normal Cranial Nerves: CN1/Olfactory: Normal CN II/ Optic: Normal, Visual Granado unreliable CN III, and : ART & EOMI CN V: Normal & intact CN VII: face is symmetric CNVIII: Normal CN XI/X/XI/XII: Intact and Normal Motor: Bilateral cogwheel rigidity and bradykinesia Strength in the right 3-4/5 Strength in the left 3-4/5 Sensory: Grossly intact for all the modalities of PP, LT and temp sense Reflexes: 1+ and symmetrical Cerebellar function: Normal finger to nose and heel to lopez testing. Toes: Equivocal Gait: Not tested at this time Results - Labs CBC & BMP: 12/23/16 04:17 12/23/16 04:17 Assessment and Plan (1) Syncopal episodes Status: Acute Assessment and plan: It could very well be vasovagal phenomena versus medications withdrawal side effects or infectious. No evidence of seizures Stop Keppra Continue rest of the treatment same Current Visit: Yes (2) Acute UTI Status: Acute Assessment and plan: Continue antibiotic coverage Okay to go back to [facility] when okay with PCP Thank you for the consult Sign off please call PRN Current Visit: Yes
[2016-12-23] MEDS ORDERED: ZALEPLON 5 MG CAPSULE PO PRN (20:04)
[2016-12-24 06:18] LABS: Basophils % 0.5 % (0.0-0.8); Eosinophils # 0.2 10*3/uL (0.0-0.87); Hematocrit 27.1 VOL% (35.7-47.0); Immature Granulocytes % 0.5 %; Immature Granulocytes Absolute 0.02 #; Lymphocytes # 0.8 10*3/uL (1.4-4.0); Lymphocytes % 18.5 % (21.3-54.2); Mean Corpuscular HGB Conc 33.2 GM/DL (32-36); Mean Corpuscular Hemoglobin 30 PG (27-34); Mean Corpuscular Volume 89.7 FL (87-102); Mean Platelet Volume 9.6 FL (9.6-12.0); Monocytes # 0.3 10*3/uL (0.11-0.8); Monocytes % 6.2 % (1.7-12.7); Neutrophils % 70.3 % (38.7-73.9); Platelet Count 410 T/CUMM (130-400); Red Blood Count 3.02 MC/CUMM (3.8-5.5); Red Cell Distribution Width 13.5 % (9.3-17.3); White Blood Count 4.2 T/CUMM (4-12)
[2016-12-24 07:01] LABS: Calcium 8.2 MG/DL (8.5-10.1); Osmolality,Calculated 274.4 MOS/KG (273-304); Potassium 3.6 MMOL/L (3.5-5.1)
--- NOTE | 2016-12-24 09:22 | Discharge Summary ---
Hospital Course - Hospital Course Hospital Course: Ms. Diop is a 76 year old female Consultants on case: Neurologist, Patient is brought from [facility], by EMS for syncopial episode1 at [facility] , Patient has history of Parkinson's disease on Stalevo, chronic anemia, ulcerative colitis, anxiety disorder, external hemorrhoids,. Patient was admitted at [facility] from 12/16/2016 to 12/21/2016 for rectal bleeding, weakness, dysphagia status post EGD and dilatation. Her Norcos were discontinued and decreased xanax dosage at previous hospitalization, Had UTI in the past hospitalization, was taking Macrobid from discharge. Prior to the admission, as per patient's history patient was upset over something,( possibly over meds), patient is being tapered off Xanax, also used to take [facility] ,was 1 week ago, , pt recollected she had this episode of rolling her eyes upwards, feeling weak , was sitting in the chair. After which she lost consciousness, and regained consciousness while she was in ambulance. As per history noted from the ER physician's notes, it was noted that she had movement of the limbs, witnessed by the nurse?, No focal deficits were noted in the ER yesterday.. No head injury, no tongue bite, no urine incontinence or bowel incontinence. No history of seizures in the past prior to this episode. Received Keppra in the ER, CT head negative, Parkinson's disease continued Stalevo, for anxiety disorder, started Celexa 10 mg p.o. daily , Xanax 0.25 in p.m as needed. Found to have Pneumonia on chest x-ray, was started on Rocephin and azithromycin, Anemia, stable H&H, no active rectal bleeding was present during hospital stay, for UTI, continue Rocephin. History of dysphagia, stable during hospital stay. No further seizure episodes were noted during the stay, as per her neurologist, Dr. Cheung, it could very well be vasovagal phenomena versus medications withdrawal side effects or infectious. No evidence of seizures,Stopped Keppra She was transferred back to [facility], and at discharge continued azithromycin for pneumonia for 3 more days, and Macrobid for UTI. Patient's medical status discussed with the family, Ms. Elda diop and her son , Mr. Diop. There is been concern of opioid, benzodiazepine dependence. Diagnosis - Discharge Diagnosis (1) Syncopal episodes Status: Acute (2) Seizures Status: Ruled-out (3) Hypertension Status: Chronic (4) UTI (urinary tract infection) Status: Acute (5) Anemia Status: Chronic (6) Anxiety Status: Chronic (7) Parkinsons disease Status: Chronic (8) Pneumonia Status: Acute Specialty Discharge - Follow Up or Referrals Follow up with: Anatoly Burrell MD [Primary Care Provider] - (pt /familt to call clinic at [phone], to make an appt at the time of discharge from [facility]) Discharge Plan - Discharge Data Disposition: Disch/Xfer- Rehab Fac Condition at Discharge: Stable Discharge Diet: advance to your usual diet Activity: as per physical therapy - Discharge Medications New Citalopram [CeleXA] 10 mg PO DAILY #30 tablet Azithromycin 500 mg PO DAILY #3 tablet Continue Carbid/Levo/[place]ac 37.5-150-200 [Stalevo 150] 150 mg PO TID Fluticasone 50 Mcg Nasal [place] [Flonase Nasal [place]] 2 spray BOTH NARES DAILY Esomeprazole Magnesium [Nexium] 40 mg PO DAILY Ondansetron Odt Tab [Zofran Odt] 4 mg PO Q8H PRN #30 tablet PRN Reason: Nausea Cholecalciferol (Vitamin D3) [Vitamin D3] 4,000 unit PO DAILY ALPRAZolam [Xanax] 0.25 mg PO BEDTIME tablet Nitrofurantoin Macro/[place] [Macrobid] 100 mg PO Q12H #8 capsule Discontinued Lidocaine 5% Patch [Lidoderm 5% Patch] 1 patch TRANSDERM DAILY Gabapentin 100 mg PO TID PRN PRN Reason: Pain No Action ALPRAZolam [Xanax] 0.25 mg PO DAILY tablet - Follow Up or Referral Follow Up: Anatoly Burrell MD [Primary Care Provider] - (pt /familt to call clinic at [phone], to make an appt at the time of discharge from [facility]) - Forms/Instructions Instructions: Azithromycin (By mouth), Ondansetron (By mouth), Citalopram (By mouth), Nitrofurantoin Combination (By mouth), Urinary Tract Infection in Women (DC), Parkinson's Disease (DC), Chronic Hypertension (DC), Anxiety (DC) Exam - Constitutional Vitals: Period Temp Pulse Resp BP Sys/Adrian Pulse Ox Last 24 Hr 97.3 F-98.4 F 61-75 14-19 98-142/50-78 91-96 Discharge Results Procedures and tests throughout hospitalization: Pending Orders 12/22/16 Urine Culture Routine 12/22/16 19:28 Blood Culture Stat 12/22/16 23:30 MRSA Surveillence, Inf Control Routine 12/23/16 Urine Culture Routine Labs on day of discharge: Labs from last 24 hours 12/24/16 12/24/16 12/23/16 04:53 04:53 12:00 WBC 4.2 RBC 3.02 L Hgb 9.0 L Hct 27.1 L MCV 89.7 MCH 30 MCHC 33.2 RDW 13.5 Plt Count 410 H MPV 9.6 Neut % (Auto) 70.3 Lymph % (Auto) 18.5 L [place] % (Auto) 6.2 Eos % (Auto) 4.0 Baso % (Auto) 0.5 Neut # (Auto) 3.0 Lymph # (Auto) 0.8 L [place] # (Auto) 0.3 Eos # (Auto) 0.2 Baso # (Auto) 0.0 Immature Gran % 0.5 Nucleated RBC % 0.0 Immature Gran # 0.02 Nucleated RBCs # 0.00 Immature Plt Fraction 0.0 Sodium 140 Potassium 3.6 Chloride 104 Carbon Dioxide 27 Anion Gap 12.6 BUN 8 Creatinine 0.80 GFR Calculation 65 BUN/Creatinine Ratio 10.00 Glucose 62 L Calculated Osmolality 274.4 Calcium 8.2 L Urine Color [place] Urine Appearance Slightly hazy Urine pH 6.0 Ur Specific [place] 1.006 Urine Protein Negative Urine Glucose (UA) Negative Urine Ketones 5 Urine Blood Large Urine Nitrate Negative Urine Bilirubin Negative Urine Urobilinogen < 2.0 H Urine Leukocytes Moderate H Urine RBC 361 Urine WBC 43 Ur Squamous Epith Cells Occasional Hyaline Casts 5 Urine Mucus Occasional Ur Culture Indicated? Results to follow Preliminary micro results at discharge 12/23/16 Unknown Urine Culture - Preliminary Urine,Clean Catch No Growth at 24 hours. 12/22/16 19:28 Blood Culture - Preliminary Blood No growth at 1 day 12/22/16 18:17 Blood Culture - Preliminary Blood No growth at 1 day DS: Provider Date of admission: 12/22/16 19:48 Primary care physician: Anatoly Burrell MD Attending physician on admission: Anatoly Burrell MD Consults: 12/22/16 19:50 Consult to Physician [CONS] Routine Comment: Consulting Provider: Misael Cheung Consulting Provider Notified: No When should Consulting Provider be notified: In am Date Notified: 12/23/16 Time Notified: 10:33 Consult Notification Comment: Left message at Dr. Cheung's office on voicemail. Discharging clinician: Anatoly Burrell MD
[2016-12-24] MEDS: CITALOPRAM 20 MG TABLET PO SCH (10:38)
[2016-12-24] MEDS: ONDANSETRON 4 MG/2 ML VIAL IV PRN (10:38)
[2016-12-24] MEDS: DOCUSATE SODIUM 100 MG CAPSULE PO SCH (10:38)
[2016-12-24] MEDS: PANTOPRAZOLE 40 MG TABLET PO SCH (10:38)
[2016-12-24] MEDS: STALEVO PO SCH ×2 (10:39→14:42)
[2016-12-24] MEDS: FLUTICASONE 50 MCG NASAL SPRAY 16 GM BOTTLE BOTH NARES SCH (10:39)
[2016-12-24] MEDS: AZITHROMYCIN INJ 500 MG in SODIUM CHLORIDE 0.9% 250 ML IV SCH (11:29)
[2016-12-24] MEDS: cefTRIAXone 1,000 MG in SODIUM CHLORIDE 0.9% 100 ML IV SCH (12:44)
[2016-12-24 14:28] VITALS: BP 143/76
== END 2016-12-24 15:31 | DRG 689 ==
LOC: EDUNIT# → EDBD → N.ED 18:04 → N.EDINP 19:48 → N.CC 23:18 → N.5E 12-23 17:57
PROVIDERS: ADMIT Family Medicine; ATTEND Family Medicine

== ENCOUNTER 2017-07-06 16:09 | Observation (INO) ==
[2017-07-06] MEDS ORDERED: ACETAMINOPHEN 325 MG TABLET PO PRN (16:37)
[2017-07-06] MEDS ORDERED: ONDANSETRON 4 MG/2 ML VIAL IV PRN (16:37)
[2017-07-06 18:17] LABS: Basophils % 0.3 % (0.0-0.8); Eosinophils # 0.1 10*3/uL (0.0-0.87); Eosinophils % 4.4 % (0.00-10.9); Hematocrit 21.1 VOL% (35.7-47.0); Immature Granulocytes % 0.3 %; Immature Granulocytes Absolute 0.01 #; Lymphocytes # 0.7 10*3/uL (1.4-4.0); Lymphocytes % 23.1 % (21.3-54.2); Mean Corpuscular HGB Conc 30.3 GM/DL (32-36); Mean Corpuscular Hemoglobin 24 PG (27-34); Mean Corpuscular Volume 77.6 FL (87-102); Mean Platelet Volume 9.4 FL (9.6-12.0); Monocytes # 0.2 10*3/uL (0.11-0.8); Monocytes % 7.5 % (1.7-12.7); Neutrophils # 2.1 10*3/uL (1.4-7.4); Neutrophils % 64.4 % (38.7-73.9); Platelet Count 278 T/CUMM (130-400); Red Blood Count 2.72 MC/CUMM (3.8-5.5); Red Cell Distribution Width 16.1 % (9.3-17.3); White Blood Count 3.2 T/CUMM (4-12)
[2017-07-06 18:21] LABS: Hemoglobin 6.4 GM/DL (12.0-16.0)
[2017-07-06] MEDS ORDERED: SODIUM CHLORIDE 0.9% 1,000 ML IV PRN (18:30)
[2017-07-06] MEDS ORDERED: diphenhydrAMINE CAP 25 MG CAPSULE PO PRN (18:32)
[2017-07-06] MEDS ORDERED: FUROSEMIDE 20 MG/2 ML VIAL IV ONE (18:33)
[2017-07-06 18:39] LABS: Alanine Aminotransferase < 6 U/L (13-56); Albumin 3.1 G/DL (3.4-5.0); Alkaline Phosphatase 114 U/L (45-117); Aspartate Amino Transferase 21 U/L (0-37); Blood Urea Nitrogen 18 MG/DL (7-18); Calcium 8.6 MG/DL (8.5-10.1); Glucose 95 MG/DL (74-106); Osmolality,Calculated 276.7 MOS/KG (273-304); Sodium 138 MMOL/L (136-145); Total Protein 6.5 G/DL (6.4-8.3)
[2017-07-06] MEDS ORDERED: ALPRAZolam 0.25 MG TABLET PO PRN (19:59)
[2017-07-06] MEDS: DOCUSATE SODIUM 100 MG CAPSULE PO SCH (20:44)
[2017-07-06] MEDS: CARBIDOPA PO SCH (22:01)
[2017-07-06] MEDS: ENTACAPONE PO SCH (22:01)
[2017-07-06] MEDS: LEVODOPA PO SCH (22:01)
[2017-07-07] MEDS ORDERED: FUROSEMIDE 20 MG/2 ML VIAL IV ONE (03:00)
[2017-07-07] MEDS: CARBIDOPA PO SCH (08:03)
[2017-07-07] MEDS: DOCUSATE SODIUM 100 MG CAPSULE PO SCH (08:03)
[2017-07-07] MEDS: ENTACAPONE PO SCH (08:03)
[2017-07-07] MEDS: LEVODOPA PO SCH (08:03)
[2017-07-07] MEDS ORDERED: FLUTICASONE 50 MCG NASAL SPRAY 16 GM BOTTLE BOTH NARES SCH (09:00)
[2017-07-07] MEDS ORDERED: CHOLECALCIFEROL 1,000 UNIT TABLET PO SCH (09:00)
[2017-07-07] MEDS ORDERED: PANTOPRAZOLE 40 MG TABLET PO SCH (09:00)
[2017-07-07 09:21] LABS: Basophils % 1.4 % (0.0-0.8); Eosinophils # 0.2 10*3/uL (0.0-0.87); Eosinophils % 5.6 % (0.00-10.9); Hematocrit 29.1 VOL% (35.7-47.0); Immature Granulocytes % 0.4 %; Immature Granulocytes Absolute 0.01 #; Lymphocytes # 0.5 10*3/uL (1.4-4.0); Lymphocytes % 18.7 % (21.3-54.2); Mean Corpuscular HGB Conc 31.6 GM/DL (32-36); Mean Corpuscular Hemoglobin 25 PG (27-34); Mean Corpuscular Volume 78.4 FL (87-102); Mean Platelet Volume 9.1 FL (9.6-12.0); Monocytes # 0.2 10*3/uL (0.11-0.8); Monocytes % 8.5 % (1.7-12.7); Neutrophils # 1.9 10*3/uL (1.4-7.4); Neutrophils % 65.4 % (38.7-73.9); Platelet Count 287 T/CUMM (130-400); White Blood Count 2.8 T/CUMM (4-12)
[2017-07-07 09:28] LABS: Hemoglobin 9.2 GM/DL (12.0-16.0); Red Blood Count 3.71 MC/CUMM (3.8-5.5)
[2017-07-07 12:32] VITALS: BP 143/75
== END 2017-07-07 14:30 | disposition home health service (06) ==
LOC: N.5E
PROVIDERS: ADMIT Family Medicine; ATTEND Family Medicine

== ENCOUNTER 2017-11-12 16:57 | Observation (INO) ==
[2017-11-12 13:00] LABS: Basophils % 0.3 % (0.0-0.8); Eosinophils # 0.1 10*3/uL (0.0-0.87); Eosinophils % 3.1 % (0.00-10.9); Hematocrit 23.6 VOL% (35.7-47.0); Hemoglobin 7.6 GM/DL (12.0-16.0); Immature Granulocytes % 0.3 %; Immature Granulocytes Absolute 0.01 #; Lymphocytes # 0.7 10*3/uL (1.4-4.0); Lymphocytes % 21.1 % (21.3-54.2); Mean Corpuscular HGB Conc 32.2 GM/DL (32-36); Mean Corpuscular Hemoglobin 27 PG (27-34); Mean Corpuscular Volume 82.5 FL (87-102); Mean Platelet Volume 9.6 FL (9.6-12.0); Monocytes # 0.2 10*3/uL (0.11-0.8); Monocytes % 7.2 % (1.7-12.7); Neutrophils # 2.2 10*3/uL (1.4-7.4); Platelet Count 294 T/CUMM (130-400); Red Blood Count 2.86 MC/CUMM (3.8-5.5); Red Cell Distribution Width 14.8 % (9.3-17.3); White Blood Count 3.2 T/CUMM (4-12)
[2017-11-12 13:30] LABS: Calcium 8.6 MG/DL (8.5-10.1); Osmolality,Calculated 276.7 MOS/KG (273-304); Potassium 4.2 MMOL/L (3.5-5.1)
[2017-11-12] MEDS: PANTOPRAZOLE 40 MG TABLET PO SCH (15:51)
[2017-11-12] MEDS: ALPRAZolam 0.25 MG TABLET PO SCH ×2 (16:35→19:32)
[~2017-11-12 16:57] MED LIST changes: +ACETAMINOPHEN 325 MG TABLET PO PRN; +DEXTROSE 5% NACL 0.9% 1,000 ML IV SCH; -LIDOCAINE 2% 5 ML VIAL ONE; +ONDANSETRON 4 MG/2 ML VIAL IV PRN; -PROPOFOL 200 MG/20 ML VIAL IV ONE; +SODIUM CHLORIDE 0.9% 1,000 ML IV PRN
[2017-11-12 19:51] LABS: Apearance,Urine Slightly Hazy (Clear); Bacteria,Urine Many /HPF (Few); Blood, Urine Moderate mg/dL (Negative); Glucose,Urine (UA) Negative (Negative); Hyaline Casts,Urine 1 /LPF (0-3); Ketones,Urine 5 mg/dL (Negative); Mucus,Urine Occasional /LPF (Occasional); Nitrite,Urine Positive (Negative); Protein,Urine 30 MG/DL; RBC,Urine 11 /HPF (0-4); Renal Epithelial Cells,Urine Occasional /HPF (<1); Squamous Epithelial Cell,Urine Occasional /HPF (0-10); Urine Color Amber (Yellow); Urine Specific Gravity 1.021 (1.001-1.035); Urine Urobilinogen < 2.0 EU/DL (0.2-1.0); WBC,Urine 135 /HPF (0-6)
[2017-11-12 19:52] LABS: Bilirubin,Urine Small mg/dL (Negative)
[2017-11-12] MEDS ORDERED: ENTACAPONE PO SCH (21:00)
[2017-11-12] MEDS ORDERED: LEVODOPA PO SCH (21:00)
[2017-11-12] MEDS ORDERED: CARBIDOPA PO SCH (21:00)
[2017-11-13 08:07] VITALS: BP 158/79
[2017-11-13 08:18] LABS: Hematocrit 30.6 VOL% (35.7-47.0)
[2017-11-13] MEDS ORDERED: LEVODOPA PO SCH (09:00)
[2017-11-13] MEDS ORDERED: ENTACAPONE PO SCH (09:00)
[2017-11-13] MEDS ORDERED: FLUTICASONE 50 MCG NASAL SPRAY 16 GM BOTTLE BOTH NARES SCH (09:00)
[2017-11-13] MEDS ORDERED: CHOLECALCIFEROL 1,000 UNIT TABLET PO SCH (09:00)
[2017-11-13] MEDS ORDERED: CARBIDOPA PO SCH (09:00)
[2017-11-13] MEDS: PANTOPRAZOLE 40 MG TABLET PO SCH (09:22)
[2017-11-13] MEDS ORDERED: VANCOMYCIN 50 MG/ML 60 ML/BOTTLE PO SCH (14:00)
== END 2017-11-13 15:07 | disposition home or self-care (01) ==
LOC: N.4E
PROVIDERS: ADMIT Family Medicine; ATTEND Family Medicine

== ENCOUNTER 2018-02-10 16:23 | Observation (INO) ==
[2018-02-10] MEDS ORDERED: ACETAMINOPHEN 325 MG TABLET PO PRN (16:42)
[2018-02-10] MEDS ORDERED: ONDANSETRON 4 MG/2 ML VIAL IV PRN (16:42)
[2018-02-10] MEDS ORDERED: ACETAMINOPHEN 325 MG TABLET PO ONE (19:02)
[2018-02-10] MEDS ORDERED: SODIUM CHLORIDE 0.9% 1,000 ML IV PRN (19:05)
[2018-02-10 20:12] LABS: Apearance,Urine CLEAR (Clear); Bacteria,Urine Many /HPF (Few); Blood, Urine Moderate mg/dL (Negative); Glucose,Urine (UA) Negative (Negative); Ketones,Urine 5 mg/dL (Negative); Mucus,Urine Occasional /LPF (Occasional); Nitrite,Urine Negative (Negative); Protein,Urine Negative; RBC,Urine 7 /HPF (0-4); Squamous Epithelial Cell,Urine Occasional /HPF (0-10); Urine Specific Gravity 1.023 (1.001-1.035); Urine Urobilinogen < 2.0 EU/DL (0.2-1.0); WBC,Urine 53 /HPF (0-6)
[2018-02-10 20:13] LABS: Bilirubin,Urine Small mg/dL (Negative); Urine Color Dark yellow (Yellow)
[2018-02-10] MEDS ORDERED: NON-FORMULARY MEDICATION PO SCH (21:00)
[2018-02-10] MEDS: ALPRAZolam 0.25 MG TABLET PO SCH ×2 (21:16→21:37)
[2018-02-10] MEDS: STALEVO 150 PO SCH (21:19)
[2018-02-10] MEDS: SODIUM CHLORIDE 0.9% 1,000 ML IV SCH (22:20)
[2018-02-11] MEDS: VANCOMYCIN 50 MG/ML 60 ML/BOTTLE PO SCH ×3 (00:18→11:48)
[2018-02-11] MEDS: SODIUM CHLORIDE 0.9% 1,000 ML IV SCH ×2 (00:26→11:48)
[2018-02-11 05:55] LABS: Eosinophils # 0.4 10*3/uL (0.0-0.87); Eosinophils % 9.9 % (0.00-10.9); Hematocrit 28.3 VOL% (35.7-47.0); Hemoglobin 9.4 GM/DL (12.0-16.0); Immature Granulocytes % 0.2 %; Immature Granulocytes Absolute 0.01 #; Lymphocytes # 0.7 10*3/uL (1.4-4.0); Lymphocytes % 17.8 % (21.3-54.2); Mean Corpuscular HGB Conc 33.2 GM/DL (32-36); Mean Corpuscular Hemoglobin 30 PG (27-34); Mean Corpuscular Volume 90.7 FL (87-102); Mean Platelet Volume 9.1 FL (9.6-12.0); Monocytes # 0.4 10*3/uL (0.11-0.8); Monocytes % 10.4 % (1.7-12.7); Neutrophils # 2.5 10*3/uL (1.4-7.4); Neutrophils % 60.7 % (38.7-73.9); Platelet Count 340 T/CUMM (130-400); Red Blood Count 3.12 MC/CUMM (3.8-5.5); Red Cell Distribution Width 14.9 % (9.3-17.3); White Blood Count 4.1 T/CUMM (4-12)
[2018-02-11 06:22] LABS: Calcium 8.5 MG/DL (8.5-10.1); Osmolality,Calculated 276.5 MOS/KG (273-304)
[2018-02-11] MEDS: STALEVO 150 PO SCH ×2 (08:44→13:13)
[2018-02-11] MEDS: ALPRAZolam 0.25 MG TABLET PO SCH (08:44)
[2018-02-11] MEDS ORDERED: PANTOPRAZOLE 40 MG TABLET PO SCH (09:00)
[2018-02-11 13:55] VITALS: BP 124/70
== END 2018-02-11 17:02 | disposition home health service (06) ==
LOC: N.5E
PROVIDERS: ADMIT Family Medicine; ATTEND Family Medicine

== ENCOUNTER 2018-05-18 11:51 | Observation (INO) ==
[2018-05-18] MEDS ORDERED: traMADol 50 MG TABLET PO PRN (12:18)
[2018-05-18] MEDS ORDERED: ACETAMINOPHEN 325 MG TABLET PO PRN (12:18)
[2018-05-18] MEDS ORDERED: ONDANSETRON 4 MG/2 ML VIAL IV PRN (12:18)
[2018-05-18] MEDS ORDERED: HYDROCORTISONE 25 MG SUPP RECTAL PRN (12:20)
[2018-05-18 13:16] LABS: Basophils % 0.6 % (0.0-0.8); Eosinophils # 0.2 10*3/uL (0.0-0.87); Eosinophils % 6.7 % (0.00-10.9); Hematocrit 23.3 VOL% (35.7-47.0); Hemoglobin 7.2 GM/DL (12.0-16.0); Immature Granulocytes % 0.6 %; Immature Granulocytes Absolute 0.02 #; Lymphocytes # 0.9 10*3/uL (1.4-4.0); Lymphocytes % 25.1 % (21.3-54.2); Mean Corpuscular HGB Conc 30.9 GM/DL (32-36); Mean Corpuscular Hemoglobin 29 PG (27-34); Mean Platelet Volume 9.2 FL (9.6-12.0); Monocytes # 0.2 10*3/uL (0.11-0.8); Monocytes % 5.8 % (1.7-12.7); Neutrophils # 2.1 10*3/uL (1.4-7.4); Neutrophils % 61.2 % (38.7-73.9); Platelet Count 368 T/CUMM (130-400); Red Blood Count 2.48 MC/CUMM (3.8-5.5); Red Cell Distribution Width 13.4 % (9.3-17.3); White Blood Count 3.4 T/CUMM (4-12)
[2018-05-18] MEDS: STALEVO PO SCH ×3 (13:24→23:11)
[2018-05-18 13:40] LABS: Alanine Aminotransferase < 9 U/L (13-56); Albumin 3.1 G/DL (3.4-5.0); Alkaline Phosphatase 104 U/L (45-117); Aspartate Amino Transferase 14 U/L (0-37); Blood Urea Nitrogen 26 MG/DL (7-18); Calcium 8.5 MG/DL (8.5-10.1); Glucose 82 MG/DL (74-106); Osmolality,Calculated 273.1 MOS/KG (273-304); Potassium 3.9 MMOL/L (3.5-5.1); Sodium 135 MMOL/L (136-145)
[2018-05-18 14:33] LABS: Apearance,Urine CLEAR (Clear); Bacteria,Urine Occasional /HPF (Few); Bilirubin,Urine Negative (Negative); Blood, Urine Small mg/dL (Negative); Glucose,Urine (UA) Negative (Negative); Hyaline Casts,Urine 5 /LPF (0-3); Ketones,Urine 5 mg/dL (Negative); Mucus,Urine Occasional /LPF (Occasional); Nitrite,Urine Positive (Negative); Protein,Urine Negative; RBC,Urine 6 /HPF (0-4); Squamous Epithelial Cell,Urine Occasional /HPF (0-10); Urine Color Amber (Yellow); Urine Specific Gravity 1.025 (1.001-1.035); Urine Urobilinogen < 2.0 EU/DL (0.2-1.0); WBC,Urine 47 /HPF (0-6)
[2018-05-18] MEDS ORDERED: SODIUM CHLORIDE 0.9% 1,000 ML IV PRN (14:59)
[2018-05-18] MEDS ORDERED: ALPRAZolam 0.25 MG TABLET PO SCH ×2 (16:30→21:00)
[2018-05-18] MEDS: DOCUSATE SODIUM 100 MG CAPSULE PO SCH (21:27)
[2018-05-19 05:41] LABS: Hemoglobin 8.5 GM/DL (12.0-16.0)
[2018-05-19 05:42] LABS: Basophils % 0.7 % (0.0-0.8); Eosinophils # 0.4 10*3/uL (0.0-0.87); Eosinophils % 10.2 % (0.00-10.9); Hematocrit 27.3 VOL% (35.7-47.0); Hemoglobin 8.5 GM/DL (12.0-16.0); Immature Granulocytes % 0.5 %; Immature Granulocytes Absolute 0.02 #; Lymphocytes % 23.6 % (21.3-54.2); Mean Corpuscular HGB Conc 31.1 GM/DL (32-36); Mean Corpuscular Hemoglobin 28 PG (27-34); Mean Corpuscular Volume 89.2 FL (87-102); Mean Platelet Volume 9.2 FL (9.6-12.0); Monocytes # 0.3 10*3/uL (0.11-0.8); Monocytes % 6.9 % (1.7-12.7); Neutrophils # 2.3 10*3/uL (1.4-7.4); Neutrophils % 58.1 % (38.7-73.9); Platelet Count 302 T/CUMM (130-400); Red Blood Count 3.06 MC/CUMM (3.8-5.5); Red Cell Distribution Width 14.8 % (9.3-17.3)
[2018-05-19] MEDS ORDERED: PANTOPRAZOLE 40 MG TABLET PO SCH (09:00)
[2018-05-19] MEDS ORDERED: ALPRAZolam 0.25 MG TABLET PO PRN (09:08)
[2018-05-19] MEDS: STALEVO PO SCH ×2 (09:27→14:58)
[2018-05-19] MEDS: DOCUSATE SODIUM 100 MG CAPSULE PO SCH (09:37)
[2018-05-19 11:37] VITALS: BP 128/76
== END 2018-05-19 13:30 | disposition home or self-care (01) ==
LOC: N.2E
PROVIDERS: ADMIT Family Medicine; ATTEND Family Medicine

== ENCOUNTER 2018-08-31 15:15 | Inpatient (IN) ==
[2018-08-31 16:44] LABS: Apearance,Urine CLEAR (Clear); Bacteria,Urine Occasional /HPF (Few); Bilirubin,Urine Negative (Negative); Blood, Urine Moderate mg/dL (Negative); Glucose,Urine (UA) Negative (Negative); Hyaline Casts,Urine 1 /LPF (0-3); Ketones,Urine Negative (Negative); Mucus,Urine Occasional /LPF (Occasional); Nitrite,Urine Negative (Negative); Protein,Urine Negative; RBC,Urine 10 /HPF (0-4); Squamous Epithelial Cell,Urine Occasional /HPF (0-10); Urine Specific Gravity 1.005 (1.001-1.035); Urine Urobilinogen < 2.0 EU/DL (0.2-1.0); WBC,Urine 12 /HPF (0-6)
[2018-08-31 16:45] LABS: Urine Color Yellow (Yellow)
[2018-08-31] MEDS ORDERED: SODIUM CHLORIDE 0.9% 500 ML IV STA (16:49)
[2018-08-31] MEDS ORDERED: DOXYCYCLINE HYCLATE INJ 100 MG in SODIUM CHLORIDE 0.9% 100 ML IV STA (16:56)
[2018-08-31 17:06] LABS: Basophils % 0.4 % (0.0-0.8); Eosinophils % 1.7 % (0.00-10.9); Hematocrit 20.5 VOL% (35.7-47.0); Hemoglobin 6.7 GM/DL (12.0-16.0); Immature Granulocytes % 0.4 %; Immature Granulocytes Absolute 0.01 #; Lymphocytes # 0.2 10*3/uL (1.4-4.0); Lymphocytes % 8.5 % (21.3-54.2); Mean Corpuscular HGB Conc 32.7 GM/DL (32-36); Mean Corpuscular Volume 82.7 FL (87-102); Mean Platelet Volume 9.7 FL (9.6-12.0); Monocytes % 6.4 % (1.7-12.7); Neutrophils % 82.6 % (38.7-73.9); Platelet Count 283 T/CUMM (130-400); Red Blood Count 2.48 MC/CUMM (3.8-5.5); Red Cell Distribution Width 14.6 % (9.3-17.3); White Blood Count 2.4 T/CUMM (4-12)
[2018-08-31 17:11] LABS: PT Patient Result 10.7 SECS
[2018-08-31 17:17] LABS: Alanine Aminotransferase < 6 U/L (13-56); Albumin 2.2 G/DL (3.4-5.0); Alkaline Phosphatase 116 U/L (45-117); Aspartate Amino Transferase 18 U/L (0-37); Blood Urea Nitrogen 13 MG/DL (7-18); Calcium 8.1 MG/DL (8.5-10.1); Glucose 109 MG/DL (74-106); Osmolality,Calculated 273.8 MOS/KG (273-304); Total Protein 5.3 G/DL (6.4-8.3)
[2018-08-31] MEDS ORDERED: MAGNESIUM SULF RIDER 2 GM in PREMIX 1 EACH IV STA (17:44)
[2018-08-31 19:12] LABS: Barbiturates Screen,Urine Negative (Negative); Benzodiazepines Screen,Urine Negative (Negative); Cannabinoid Screen,Urine Negative (Negative); Opiate Screen,Urine Negative (Negative); Phencyclidine Screen,Urine Negative (Negative)
[2018-08-31] MEDS ORDERED: NON-FORMULARY MEDICATION (Acetaminophen 650 MG) PO PRN (20:42)
[2018-08-31] MEDS ORDERED: ONDANSETRON 4 MG/2 ML VIAL IV PRN (20:42)
[2018-08-31] MEDS ORDERED: ONDANSETRON 4 MG TABLET PO PRN (20:42)
[2018-08-31] MEDS ORDERED: CARBIDOPA LEVODOPA ENTACAPONE PO SCH (20:42)
[2018-08-31] MEDS ORDERED: ACETAMINOPHEN 325 MG TABLET PO PRN (20:42)
[2018-08-31] MEDS ORDERED: SODIUM CHLORIDE 0.9% 1,000 ML IV PRN (20:42)
[2018-08-31] MEDS ORDERED: LOPERAMIDE 2 MG CAPSULE PO PRN (20:42)
[2018-08-31] MEDS: PANTOPRAZOLE 40 MG TABLET PO SCH (22:49)
[2018-08-31] MEDS: SODIUM CHLORIDE 0.9% 1,000 ML IV SCH (22:49)
[2018-08-31] MEDS: DOCUSATE SODIUM 100 MG CAPSULE PO SCH (22:50)
[2018-08-31] MEDS: FLUTICASONE 50 MCG NASAL SPRAY 16 GM BOTTLE BOTH NARES SCH (22:51)
[2018-09-01 03:20] LABS: Eosinophils % 0.5 % (0.00-10.9); Immature Granulocytes % 0.5 %; Immature Granulocytes Absolute 0.01 #; Lymphocytes # 0.2 10*3/uL (1.4-4.0); Lymphocytes % 7.1 % (21.3-54.2); Mean Corpuscular HGB Conc 32.8 GM/DL (32-36); Mean Corpuscular Volume 80.5 FL (87-102); Monocytes % 6.2 % (1.7-12.7); Neutrophils % 85.7 % (38.7-73.9); Platelet Count 270 T/CUMM (130-400); Red Cell Distribution Width 14.9 % (9.3-17.3); White Blood Count 2.1 T/CUMM (4-12)
[2018-09-01 03:23] LABS: Hemoglobin 5.8 GM/DL (12.0-16.0)
[2018-09-01 03:24] LABS: Hematocrit 17.7 VOL% (35.7-47.0)
[2018-09-01 03:36] LABS: Anisocytosis 1+; Hypochromasia 1+; Microcytosis 1+; Platelet Estimate Normal
[2018-09-01 03:39] LABS: Alanine Aminotransferase < 6 U/L (13-56); Albumin 1.8 G/DL (3.4-5.0); Alkaline Phosphatase 89 U/L (45-117); Aspartate Amino Transferase 14 U/L (0-37); Blood Urea Nitrogen 14 MG/DL (7-18); Calcium 7.2 MG/DL (8.5-10.1); Glucose 71 MG/DL (74-106); Osmolality,Calculated 273.7 MOS/KG (273-304); Total Protein 4.2 G/DL (6.4-8.3)
[2018-09-01] MEDS ORDERED: FUROSEMIDE 20 MG/2 ML VIAL IV ONE (06:56)
[2018-09-01] MEDS ORDERED: MAGNESIUM SULF RIDER 2 GM in PREMIX 1 EACH IV ONE (08:45)
[2018-09-01] MEDS ORDERED: PANTOPRAZOLE 40 MG VIAL IV SCH (09:00)
[2018-09-01] MEDS ORDERED: SIMETHICONE CHEW 80 MG TABLET PO SCH (09:00)
[2018-09-01] MEDS: LORazepam 2 MG/1 ML VIAL IV PRN ×2 (10:33→21:53)
[2018-09-01] MEDS: DOCUSATE SODIUM 100 MG CAPSULE PO SCH ×2 (10:49→21:52)
[2018-09-01] MEDS: FLUTICASONE 50 MCG NASAL SPRAY 16 GM BOTTLE BOTH NARES SCH (10:49)
[2018-09-01] MEDS: CARBOXYMETHYLCELLULOSE 1% OPH SOLN BOTH EYES SCH (10:50)
[2018-09-01] MEDS: PANTOPRAZOLE 40 MG TABLET PO SCH (10:58)
[2018-09-01] MEDS: FAMOTIDINE 20 MG/2 ML VIAL IV SCH ×2 (11:05→21:52)
[2018-09-01] MEDS: SODIUM CHLORIDE 0.9% 1,000 ML IV SCH ×3 (11:05→21:03)
[2018-09-01] MEDS ORDERED: fentaNYL 12 MCG/HR PATCH TRANSDERM SCH (15:45)
[2018-09-01] MEDS: DESITIN 4OZ/NYSTATIN 15 GRAM MIXTURE PASTE TOP SCH (21:53)
[2018-09-02] MEDS: SODIUM CHLORIDE 0.9% 1,000 ML IV SCH ×2 (07:43→10:29)
[2018-09-02] MEDS ORDERED: FUROSEMIDE 20 MG TABLET PO SCH (08:00)
[2018-09-02] MEDS ORDERED: POTASSIUM CHLORIDE 20 MEQ TABLET PO SCH (08:00)
[2018-09-02] MEDS: FAMOTIDINE 20 MG/2 ML VIAL IV SCH (08:23)
[2018-09-02] MEDS: DESITIN 4OZ/NYSTATIN 15 GRAM MIXTURE PASTE TOP SCH (08:23)
[2018-09-02] MEDS: CARBOXYMETHYLCELLULOSE 1% OPH SOLN BOTH EYES SCH (08:23)
[2018-09-02] MEDS: DOCUSATE SODIUM 100 MG CAPSULE PO SCH ×2 (08:26→20:44)
[2018-09-02 08:29] LABS: Hemoglobin 7.6 GM/DL (12.0-16.0)
[2018-09-02] MEDS: MORPHINE 10 MG/5 ML UDCUP PO PRN (21:53)
[2018-09-03] MEDS: DESITIN 4OZ/NYSTATIN 15 GRAM MIXTURE PASTE TOP SCH ×2 (00:09→08:37)
[2018-09-03] MEDS: CARBOXYMETHYLCELLULOSE 1% OPH SOLN BOTH EYES SCH (08:37)
[2018-09-03] MEDS: DOCUSATE SODIUM 100 MG CAPSULE PO SCH (08:37)
[2018-09-03] MEDS: SODIUM CHLORIDE 0.9% 1,000 ML IV SCH (09:21)
[2018-09-03] MEDS: MORPHINE 10 MG/5 ML UDCUP PO PRN (11:15)
[2018-09-03 13:26] VITALS: BP 114/58
[2018-09-03] MEDS ORDERED: fentaNYL 12 MCG/HR PATCH TRANSDERM ONE (14:30)
[2018-09-05] MEDS ORDERED: ERGOCALCIFEROL 50,000 UNIT CAPSULE PO SCH (09:00)
== END 2018-09-03 14:34 | disposition hospice, home (50) | DRG 375 ==
LOC: EDBD → EDUNIT# → N.ED 15:15 → N.EDINP 19:07 → N.TELES 19:44
PROVIDERS: ADMIT Family Medicine; ATTEND Family Medicine